=== PATIENT | male | born 2000 | race Caucasian/White ===

== ENCOUNTER 2018-10-21 19:11 | Inpatient (IN) | payer OTHER, MEDICAID ==
[2018-10-21] VITALS (11 sets, daily range): BP systolic 81–137; BP diastolic 36–78
[~2018-10-21] VITALS: Ht 177.8 cm; Wt 68.2 kg
[2018-10-21] MEDS ORDERED: Etomidate 40mg/20ml Inj IV ONE (19:30)
[2018-10-21] MEDS ORDERED: Glucagon 1mg Inj IV ONE (19:30)
[2018-10-21] MEDS ORDERED: Zemuron 50mg/5ml Inj IV ONE (19:30)
[2018-10-21] MEDS ORDERED: Activated Charcoal 50gm/240ml Btl ORAL ONE (19:30)
--- NOTE | 2018-10-21 19:30 | NUR ---
ER Nurse Note: Pt BIBA 24 c/o overdose; per EMS pt took propranolol, prazosin, olanzapine, atomoxetine, unknown amount. Pt a&ox0, unresponsive, BP 86/50. Pt on RA; intubated on arrival. Pt warm to touch, cap refill less than 3 secs, flaccid extemities. ERMD, RT, cartography/mapping technician, primary nurse and other nurses at pt side.
--- NOTE | 2018-10-21 19:38 | Emergency Room Report ---
History of Present Illness General Chief Complaint: Overdose Source: Patient, EMS Present Illness HPI 18-year-old male unknown past medical history presenting with overdose. He is from [place] reportedly, he voiced suicidal ideation to his girlfriend. And called 911. EMS arrived and patient was sunken in the couch. He had bottles for propranolol 40 mg 20 tablets, prazosin, olanzapine, atomoxetine. Unknown how many of each she took but the propranolol as well as olanzapine bottles were completely empty Patient is completely altered and lethargic cannot give any history EMS said that they gave Narcan without any effect Allergies: Coded Allergies: No Known Allergies (Unverified , 10/21/18) Patient History Past Medical History: see triage record Past Surgical History: none Pertinent Family History: none Reviewed Nursing Documentation: PMH: Agreed; PSxH: Agreed Nursing Documentation-PMH Past Medical History Deferred: Patient Unconscious Past Medical History: No Stated History Review of Systems All Other Systems: negative except mentioned in HPI Physical Exam Vital Signs Date Time Temp Pulse Resp B/P (MAP) Pulse Ox O2 Delivery O2 Flow Rate FiO2 10/21/18 19:12 88 12 108/76 98 Room Air Sp02 EP Interpretation: reviewed, normal General Appearance: lethargic, Stupor Head: normocephalic, atraumatic Eyes: bilateral eye normal inspection, bilateral eye PERRL, bilateral eye EOMI ENT: normal ENT inspection, normal pharynx, moist mucus membranes Neck: normal inspection, full range of motion, supple Respiratory: no retraction, respiratory distress, accessory muscle use Cardiovascular #1: normal inspection, regular rate, rhythm, no edema, normal capillary refill Cardiovascular #2: 2+ radial (R), 2+ radial (L) Gastrointestinal: other - no grimace to deep palpation, no guarding or rigidity Genitourinary: no CVA tenderness Musculoskeletal: other - no trauma Neurologic: other - gcs 3, unresponsive Psychiatric: other Skin: normal inspection, normal color, no rash, warm/dry, well hydrated, normal turgor Procedures Critical Care Time Critical Care Time Critical care time of 40 minutes, was performed in order to assess and manage the high probability of imminent or life threatening deterioration, with frequent reassessment and excludes all billable procedures. Intubation Intubation : Consent: Emergent Intubation Method: orotracheal Tube Size (cm): 8.0 Medications: Etomidate, Rocuronium Breath Sounds after Intubation: equal Intubation Complications: no complications Post Intubation Xray: Yes Attempts: One Patient Tolerated: Well Medical Decision Making Diagnostic Impression: Primary Impression: Drug overdose Additional Impression: Beta kathie toxicity ER Course 18-year-old male unknown pmhx p/w overdose DDX: OD likely 2/2 to his pills, olanzapine, prazosin, tamoxifen, and propranolol VS other tox such as alcohol / heroin / methamphetamines. R/O life threatening toxic overdose such as tylenol, ASA At this time, no history or signs of trauma to consider intracranial process Plan: IV access, labs, including alcohol, tylenol, asa, IVF ER course: Patient initially in heart rate of 80s, but hypotensive 86/50, bolus was given Patient immediately intubated upon arrival Activated charcoal given via NG tube Glucagon given I discussed with poison control -- they are aware of case and everything is already being done for patient Disposition: Patient admits ICU DW Dr Song Please note that this Emergency Department Report was dictated using [employer] touring guide technology software, occasionally this can lead to erroneous entry secondary to interpretation by the dictation equipment EKG Diagnostic Results EP Interpretation: Yes Rate: normal Rhythm: NSR ST Segments: No acute changes ASA given to patient: No Rhythm Strip EP Interpretation: Yes Rate: 70 Rhythm: NSR, no PVCs, no ectopy Chest X-ray CXR: Ordered: Yes 1 view Indication altered mental status EP interpretation: Yes Interpretation: ETT in appropriate position, NGT in postiion Impression: No acute disease Electronically signed by Karli Gamboa MD Laboratory Tests Test 10/21/18 19:24 10/21/18 19:25 Lactic Acid Level 1.50 mmol/L (0.4-2.0) White Blood Count 10.0 K/UL (4.8-10.8) Red Blood Count 5.04 M/UL (4.70-6.10) Hemoglobin 15.1 G/DL (14.2-18.0) Hematocrit 43.5 % (42.0-52.0) Mean Corpuscular Volume 86 FL (80-99) Mean Corpuscular Hemoglobin 30.1 PG (27.0-31.0) Mean Corpuscular Hemoglobin Concent 34.8 G/DL (32.0-36.0) Red Cell Distribution Width 11.1 % (11.6-14.8) L Platelet Count 303 K/UL (150-450) Mean Platelet Volume 5.6 FL (6.5-10.1) L Neutrophils (%) (Auto) 63.7 % (45.0-75.0) Lymphocytes (%) (Auto) 25.8 % (20.0-45.0) Monocytes (%) (Auto) 7.2 % (1.0-10.0) Eosinophils (%) (Auto) 2.7 % (0.0-3.0) Basophils (%) (Auto) 0.6 % (0.0-2.0) Sodium Level 145 MMOL/L (136-145) Potassium Level 3.4 MMOL/L (3.5-5.1) L Chloride Level 111 MMOL/L (98-107) H Carbon Dioxide Level 25 MMOL/L (21-32) Anion Gap 9 mmol/L (5-15) Blood Urea Nitrogen 14 mg/dL (7-18) Creatinine 0.8 MG/DL (0.55-1.30) Estimate Glomerular Filtration Rate > 60 mL/min (>60) Glucose Level 73 MG/DL (74-106) L Calcium Level 7.3 MG/DL (8.5-10.1) L Total Bilirubin 0.3 MG/DL (0.2-1.0) Aspartate Amino Transferase (AST) 14 U/L (15-37) L Alanine Aminotransferase (ALT) 30 U/L (12-78) Alkaline Phosphatase 65 U/L (46-116) Total Creatine Kinase 77 U/L (26-308) Troponin I 0.000 ng/mL (0.000-0.056) Total Protein 5.6 G/DL (6.4-8.2) L Albumin 3.3 G/DL (3.4-5.0) L Globulin 2.3 g/dL Albumin/Globulin Ratio 1.4 (1.0-2.7) Salicylates Level 1.0 ug/mL (2.8-20) L Acetaminophen Level 4 MCG/ML (10-30) L Serum Alcohol < 3 mg/dL CT/MRI/US Diagnostic Results CT/MRI/US Diagnostic Results : Imaging Test Ordered: CT HEAD Impression CT HEAD Without Contrast: Motion degraded study. Negative for mass, mass-effect or intracranial hemorrhage. Last Vital Signs Date Time Temp Pulse Resp B/P (MAP) Pulse Ox O2 Delivery O2 Flow Rate FiO2 10/21/18 19:12 88 12 108/76 98 Room Air Disposition: ADMITTED INPATIENT Condition: Critical Karli Gamboa M.D. Oct 21, 2018 19:38
[2018-10-21 19:44] LABS: BASOPHILS % (AUTO) 0.6 % (0.0-2.0); EOSINOPHILS % (AUTO) 2.7 % (0.0-3.0); HEMATOCRIT 43.5 % (42.0-52.0); HEMOGLOBIN 15.1 G/DL (14.2-18.0); LYMPHOCYTES % (AUTO) 25.8 % (20.0-45.0); MEAN CORPUSCULAR VOLUME 86 FL (80-99); MONOCYTES % (AUTO) 7.2 % (1.0-10.0); NEUTROPHILS % (AUTO) 63.7 % (45.0-75.0); PLATELET COUNT 303 K/UL (150-450); RED BLOOD COUNT 5.04 M/UL (4.70-6.10); RED CELL DISTRIBUTION WIDTH 11.1 % (11.6-14.8)
--- NOTE | 2018-10-21 20:30 | NUR ---
ER Nurse Note: 1914: Pt arrived to unit with VS of 86/52, 92hr, 19rr, 98% RA. 1L NS given to increase BP before initating intubation. 1919: After bolus, BP 105/77, 88HR, 10RR, 100%RA. Orders for Etomidate 30mg and Rucaronium 80 mg given and administered. 1922: Pt intubated with size 8.0mg, anchored at 19 cm at lip. 1924: x-ray confirmation on ET tube and NG tube; cleared by ERMD for use. 1929: activated charcoal given via NG tube 2015: ET tube readjusted to 26 cm, x-ray taken and cleared for use. 2030: All orders completed per ERMD orders except urine. Received verbal order for condom cath, no urine; will endorse to oncoming nurse. Pt a&ox0, VSS. All orders given; pt on fentyl drip started at 10mcg/min. Will continue to monitor.
[2018-10-21 20:31] LABS: ANION GAP 9 mmol/L (5-15); BLOOD UREA NITROGEN 14 mg/dL (7-18); CALCIUM 7.3 MG/DL (8.5-10.1); CARBON DIOXIDE 25 MMOL/L (21-32); CHLORIDE 111 MMOL/L (98-107); CREATININE 0.8 MG/DL (0.55-1.30); POTASSIUM 3.4 MMOL/L (3.5-5.1); SODIUM 145 MMOL/L (136-145)
[2018-10-21 20:35] LABS: ALANINE AMINOTRANSFERASE 30 U/L (12-78); ALBUMIN 3.3 G/DL (3.4-5.0); ALBUMIN/GLOBULIN RATIO 1.4 (1.0-2.7); ALKALINE PHOSPHATASE 65 U/L (46-116); ASPARTATE AMINO TRANSFERASE 14 U/L (15-37); BILIRUBIN,TOTAL 0.3 MG/DL (0.2-1.0); CREATINE KINASE 77 U/L (26-308)
[2018-10-21] MEDS ORDERED: INDERAL20 MG PO (20:43)
[2018-10-21] MEDS ORDERED: PRAZOSIN HCL2 MG PO (20:43)
[2018-10-21] MEDS ORDERED: STRATTERA60 MG ORAL (20:43)
[2018-10-21] MEDS ORDERED: OLANZAPINE15 MG ORAL (20:43)
[2018-10-21] MEDS ORDERED: LORazepam Inj 2mg/ml 1ml IV PRN (21:15)
[2018-10-21] MEDS ORDERED: Nitroglycerin Subl 0.4mg tab SL PRN (21:15)
[2018-10-21] MEDS ORDERED: Albuterol/Ipratropium 3ml neb HHN PRN (21:15)
[2018-10-21] MEDS ORDERED: Morphine Sulfate 4mg/ml Inj (IV USE ONLY) IVP PRN (21:15)
--- NOTE | 2018-10-21 21:15 | NUR ---
ER Nurse Note: Report given to Sabina charge nurse in ICU to endorse to HAIDER Suarez primary nurse. Pt left with all belongings.
--- NOTE | 2018-10-21 22:00 | NUR ---
NURSE NOTES: Received report from Monet MALONEY. Patient received from ER via gurney admitted from home for overdose under the care of Dr. Song, Dr Daniels placed an order. Patient in bed lethargic with episode of pulling tubing MD aware with bilateral soft wrist restraint order. Patient on Fentanyl 2mls/hr RASS score -2. Condom intact no urine output. Body assessment done. Bed in low position. bed alarm on and in low position. Will continue to monitor plan of care. Charge nurse left message to patient girlfriend to ask information regarding the patient history and medication list.
[2018-10-21] MEDS: D5 1/2NS 1,000 ML IV SCH (22:16)
[2018-10-21 23:22] LABS: BILIRUBIN, URINE 1+ (NEGATIVE); COLOR,URINE PALE YELLOW; GLUCOSE, URINE (UA) 3+ (NEGATIVE); KETONES,URINE 1+ (NEGATIVE); LEUKOCYTE ESTERASE ,URINE 1+ (NEGATIVE); NITRITE,URINE NEGATIVE (NEGATIVE); PH,URINE 6 (4.5-8.0); PROTEIN,URINE 1+ (NEGATIVE); UROBILINOGEN,URINE NORMAL MG/DL (0.0-1.0)
[2018-10-21 23:23] LABS: APPEARANCE,URINE SLIGHTLY CLOUDY
--- NOTE | 2018-10-21 23:45 | NUR ---
NURSE NOTES: Levi Pharmacist from [facility] poison control called regarding the patient blood test, drug screen, vital sign and patient conditions. charge nurse aware.
[2018-10-22] VITALS (18 sets, daily range): BP systolic 11–153; BP diastolic 46–92
--- NOTE | 2018-10-22 | NUR ---
NURSE NOTES: Held Fentanyl drip patient not agitated and bp slightly low 81/36 and 104/59. Charge nurse aware. will continue to monitor patient.
--- NOTE | 2018-10-22 02:00 | NUR ---
NURSE NOTES: Patient in bed resting no moaning no facial grimaces. Fentanyl drip still hold. Honeycutt draining. No s/s of acute distress noted. Will continue plan of care.
--- NOTE | 2018-10-22 04:00 | NUR ---
NURSE NOTES: Patient Temp 99.5 axillary cooling measure provided. Fentanyl drip still hold BP 114/59, HR 92. No s/s of acute distress noted. No seizure. will continue plan of care.
[2018-10-22 04:25] LABS: BASOPHILS % (AUTO) 0.3 % (0.0-2.0); EOSINOPHILS % (AUTO) 1.9 % (0.0-3.0); HEMATOCRIT 40.2 % (42.0-52.0); LYMPHOCYTES % (AUTO) 13.8 % (20.0-45.0); MEAN CORPUSCULAR VOLUME 87 FL (80-99); MONOCYTES % (AUTO) 7.1 % (1.0-10.0); PLATELET COUNT 242 K/UL (150-450); RED BLOOD COUNT 4.61 M/UL (4.70-6.10); RED CELL DISTRIBUTION WIDTH 11.3 % (11.6-14.8)
[2018-10-22 04:34] LABS: INR 1.1 (0.9-1.1)
[2018-10-22 04:46] LABS: ALANINE AMINOTRANSFERASE 30 U/L (12-78); ALBUMIN 3.4 G/DL (3.4-5.0); ALKALINE PHOSPHATASE 56 U/L (46-116); ASPARTATE AMINO TRANSFERASE 17 U/L (15-37); BILIRUBIN,DIRECT < 0.1 MG/DL (0.0-0.3); BILIRUBIN,TOTAL 0.5 MG/DL (0.2-1.0); LACTATE DEHYDROGENASE 162 U/L (81-234); PHOSPHORUS 2.2 MG/DL (2.5-4.9)
--- NOTE | 2018-10-22 05:17 | NUR ---
NURSE NOTES: Blood glucose 96mg/dl.
--- NOTE | 2018-10-22 06:35 | NUR ---
RESPIRATORY NOTE: Received patient on ordered vent settings. Patient endotracheal tube is patent and secured. No resp distress noted. Suctioned patient PRN. Vent alarms are on and audible. Vent is plugged into red outlet. Will monitor patient progress.
--- NOTE | 2018-10-22 07:10 | NUR ---
HAND-OFF: Report given to HAIDER Huston.Endorsed to follow with girlfriend regarding the patient history and medication.
--- NOTE | 2018-10-22 07:20 | NUR ---
NURSE NOTES: Received report from Jayden Alex RN. Patient asleep in bed, responsive to tactile stimuli. ETT 8.0, 26 cm at lip line, hooked to vent with settings of AC 16, TV 600, FiO2 30%, no PEEP, saturating at 100%. No s/s of respiratory distress floating. Left NGT in place and draining black secretions. Honeycutt catheter patent and draining well. Left AC 18g infusing D51/2NS @ 75 cc/hr, asymptomatic. Bilateral soft wrist restraints in place. Skin intact, no redness or edema noted. Peripheral pulses present. Bed locked in lowest position with side rails up x 3. Bed alarm on. All needs attended to. Call light within reach. Will continue to monitor.
--- NOTE | 2018-10-22 08:01 | NUR ---
NURSE NOTES: Patient noted to be restless and attempting to get out of bed, agitated when touched. PRN ativan 2mg IVP given.
--- NOTE | 2018-10-22 08:43 | NUR ---
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 BETA JOYCE TOXICITY VS: BP 88/70, P 90, T 98.1, RR 14, SpO2 100 WBC 15.0, RBC 4.61, Hgb 14.0, Hct 40.2, K 3.4 IS:GLUCAGON 3mg IV CHARCOAL 50gm NS x1L IV ZEMURON 80mg IV AMIDATE 30mg IV FENTANYL CITRATE 100ml IV ADMITTED TO ICU DC PLAN TO BE DETERMINED Addendum: 10/22/18 at 0858 by Clarice Skinner LVN DC PLAN TO DETERMINED ON CARE NEEDED Addendum: 10/22/18 at 0931 by Clarice Skinner LVN VENT SETTINGS: AC 16, TV 600, FiO2 60
[2018-10-22] MEDS ORDERED: Heparin 5000 units/ml inj SUBQ SCH (09:00)
[2018-10-22] MEDS: Haloperidol 5mg/ml Inj IVPB PRN ×2 (09:52→09:57)
--- NOTE | 2018-10-22 09:53 | Consultation ---
History of Present Illness General Date patient seen: Oct 22, 2018 Chief Complaint: Overdose Present Illness HPI 18-year-old male unknown past medical history presented to ER by EMS with overdose of multiple medications. He had bottles for propranolol 40 mg 20 tablets, prazosin, olanzapine, atomoxetine. He voiced suicidal ideation to his girlfriend. And called 911. EMS arrived and patient was sunken in the couch. Unknown how many of each she took but the propranolol as well as olanzapine bottles were completely empty. Patient is completely altered and lethargic cannot give any history. EMS said that they gave Narcan without any effect. He was in respiratory failure in ER and was intubated. He received Charcoal and transferred to ICU. Allergies: Coded Allergies: No Known Allergies (Unverified , 10/21/18) Medication History Scheduled Atomoxetine (Strattera), 25 MG ORAL DAILY, (Reported) Olanzapine (Olanzapine), 30 MG ORAL DAILY, (Reported) Prazosin Hcl (Prazosin Hcl), 4 MG PO BEDTIME, (Reported) Propranolol HCl (Propranolol HCl), 40 MG PO BID, (Reported) Patient History Healthcare decision maker N Resuscitation status Full Code Advanced Directive on File No Past Medical/Surgical History Past Medical/Surgical History: (1) unknown past medical history Review of Systems All Other Systems: negative except mentioned in HPI Physical Exam General Appearance: WD/WN Lines, tubes and drains: peripheral HEENT: normocephalic Neck: non-tender, normal alignment Respiratory/Chest: chest wall non-tender, lungs clear Breasts: no masses Cardiovascular/Chest: normal rate Genitourinary/Rectal: normal genital exam Extremities: non-tender Last 24 Hour Vital Signs Date Time Temp Pulse Resp B/P (MAP) Pulse Ox O2 Delivery O2 Flow Rate FiO2 10/22/18 08:00 30 10/22/18 08:00 Endotracheal Tube 10/22/18 08:00 98.1 102 18 112/76 (88) 100 10/22/18 07:40 100 10/22/18 07:00 91 16 140/81 (100) 100 10/22/18 06:00 91 17 127/79 (95) 100 10/22/18 05:23 90 16 30 100 10/22/18 05:00 92 16 127/76 (93) 100 10/22/18 04:30 92 16 114/59 (77) 100 10/22/18 04:00 99.5 91 16 108/58 (75) 100 10/22/18 04:00 Endotracheal Tube 10/22/18 04:00 60 10/22/18 04:00 91 10/22/18 03:07 92 16 35 100 10/22/18 03:00 91 16 118/56 (76) 100 10/22/18 02:00 90 16 113/59 (77) 100 10/22/18 01:30 90 16 105/52 (69) 100 10/22/18 01:00 91 16 40 100 10/22/18 01:00 90 16 117/63 (81) 100 10/22/18 00:30 87 16 109/60 (76) 100 10/22/18 00:09 88 16 104/59 (74) 100 10/22/18 00:00 60 10/22/18 00:00 Endotracheal Tube 10/22/18 00:00 98.4 88 16 87/46 (60) 100 10/21/18 23:45 88 16 81/36 (51) 100 10/21/18 23:30 88 16 101/54 (70) 100 10/21/18 23:15 88 16 115/66 (82) 100 10/21/18 23:06 89 10/21/18 23:00 89 16 109/64 (79) 100 10/21/18 23:00 16 Endotracheal Tube 60 10/21/18 22:45 86 16 106/62 (77) 100 10/21/18 22:34 16 Endotracheal Tube 60 10/21/18 22:30 86 16 95/50 (65) 100 10/21/18 22:28 86 16 60 100 10/21/18 22:23 81 16 100 10/21/18 22:14 16 Endotracheal Tube 60 10/21/18 22:02 60 10/21/18 22:01 93 10/21/18 22:01 Endotracheal Tube 10/21/18 22:00 98.1 93 14 101/70 (80) 100 10/21/18 21:59 17 Endotracheal Tube 60 10/21/18 21:39 18 Endotracheal Tube 60 10/21/18 21:37 98.2 84 16 136/76 98 Endotracheal Tube 60.0 60 10/21/18 21:37 98.2 84 16 136/76 98 Endotracheal Tube 60.0 60 10/21/18 21:14 16 Endotracheal Tube 60 10/21/18 20:59 18 Endotracheal Tube 60 10/21/18 20:39 17 Endotracheal Tube 60 10/21/18 20:30 88 17 102/66 100 Endotracheal Tube 60.0 60 10/21/18 20:29 18 Endotracheal Tube 60.0 60 10/21/18 20:14 16 Mechanical Ventilator 100.0 60 10/21/18 19:30 98.1 90 14 88/70 100 Endotracheal Tube 60.0 60 10/21/18 19:30 80 14 Mechanical Ventilator 100 10/21/18 19:21 80 14 Mechanical Ventilator 100 10/21/18 19:20 80 14 100 10/21/18 19:12 88 12 108/76 98 Room Air Intake and Output 10/21/18 10/22/18 18:59 06:59 Intake Total 2582 ml Output Total 655 ml Balance 1927 ml Intake IV Total 2582 ml Output Urine Total 655 ml Laboratory Tests Test 10/21/18 19:24 10/21/18 19:25 10/21/18 22:00 10/21/18 23:00 Lactic Acid Level 1.50 mmol/L (0.4-2.0) White Blood Count 10.0 K/UL (4.8-10.8) Red Blood Count 5.04 M/UL (4.70-6.10) Hemoglobin 15.1 G/DL (14.2-18.0) Hematocrit 43.5 % (42.0-52.0) Mean Corpuscular Volume 86 FL (80-99) Mean Corpuscular Hemoglobin 30.1 PG (27.0-31.0) Mean Corpuscular Hemoglobin Concent 34.8 G/DL (32.0-36.0) Red Cell Distribution Width 11.1 % (11.6-14.8) L Platelet Count 303 K/UL (150-450) Mean Platelet Volume 5.6 FL (6.5-10.1) L Neutrophils (%) (Auto) 63.7 % (45.0-75.0) Lymphocytes (%) (Auto) 25.8 % (20.0-45.0) Monocytes (%) (Auto) 7.2 % (1.0-10.0) Eosinophils (%) (Auto) 2.7 % (0.0-3.0) Basophils (%) (Auto) 0.6 % (0.0-2.0) Sodium Level 145 MMOL/L (136-145) Potassium Level 3.4 MMOL/L (3.5-5.1) L Chloride Level 111 MMOL/L (98-107) H Carbon Dioxide Level 25 MMOL/L (21-32) Anion Gap 9 mmol/L (5-15) Blood Urea Nitrogen 14 mg/dL (7-18) Creatinine 0.8 MG/DL (0.55-1.30) Estimat Glomerular Filtration Rate > 60 mL/min (>60) Glucose Level 73 MG/DL (74-106) L Calcium Level 7.3 MG/DL (8.5-10.1) L Total Bilirubin 0.3 MG/DL (0.2-1.0) Aspartate Amino Transf (AST/SGOT) 14 U/L (15-37) L Alanine Aminotransferase (ALT/SGPT) 30 U/L (12-78) Alkaline Phosphatase 65 U/L (46-116) Total Creatine Kinase 77 U/L (26-308) Troponin I 0.000 ng/mL (0.000-0.056) Total Protein 5.6 G/DL (6.4-8.2) L Albumin 3.3 G/DL (3.4-5.0) L Globulin 2.3 g/dL Albumin/Globulin Ratio 1.4 (1.0-2.7) Salicylates Level 1.0 ug/mL (2.8-20) L Acetaminophen Level 4 MCG/ML (10-30) L Serum Alcohol < 3 mg/dL Urine Color Pale yellow Urine Appearance Slightly cloudy Urine pH 6 (4.5-8.0) Urine Specific Irene 1.015 (1.005-1.035) Urine Protein 1+ (NEGATIVE) H Urine Glucose (UA) 3+ (NEGATIVE) H Urine Ketones 1+ (NEGATIVE) H Urine Blood Negative (NEGATIVE) Urine Nitrite Negative (NEGATIVE) Urine Bilirubin 1+ (NEGATIVE) H Urine Ictotest Negative (NEGATIVE) Urine Urobilinogen Normal MG/DL (0.0-1.0) Urine Leukocyte Esterase 1+ (NEGATIVE) H Urine RBC 0-2 /HPF (0 - 0) H Urine WBC 0-2 /HPF (0 - 0) Urine Squamous Epithelial Cells Occasional /LPF Urine Bacteria Occasional /HPF (NONE) Urine Opiates Screen Negative (NEGATIVE) Urine Barbiturates Screen Negative (NEGATIVE) Phencyclidine (PCP) Screen Negative (NEGATIVE) Urine Amphetamines Screen Negative (NEGATIVE) Urine Benzodiazepines Screen Negative (NEGATIVE) Urine Cocaine Screen Negative (NEGATIVE) Urine Marijuana (THC) Screen Positive (NEGATIVE) H Arterial Blood pH 7.418 (7.350-7.450) Arterial Blood Partial Pressure CO2 34.6 mmHg (35.0-45.0) L Arterial Blood Partial Pressure O2 306.8 mmHg (75.0-100.0) H Arterial Blood HCO3 21.8 mmol/L (22.0-26.0) L Arterial Blood Oxygen Saturation 99.2 % (95-100) Arterial Blood Base Excess -1.9 (-2-2) Kartik Test Positive Test 10/22/18 03:10 10/22/18 07:40 White Blood Count 15.0 K/UL (4.8-10.8) H Red Blood Count 4.61 M/UL (4.70-6.10) L Hemoglobin 14.0 G/DL (14.2-18.0) L Hematocrit 40.2 % (42.0-52.0) L Mean Corpuscular Volume 87 FL (80-99) Mean Corpuscular Hemoglobin 30.5 PG (27.0-31.0) Mean Corpuscular Hemoglobin Concent 34.9 G/DL (32.0-36.0) Red Cell Distribution Width 11.3 % (11.6-14.8) L Platelet Count 242 K/UL (150-450) Mean Platelet Volume 6.3 FL (6.5-10.1) L Neutrophils (%) (Auto) 77.0 % (45.0-75.0) H Lymphocytes (%) (Auto) 13.8 % (20.0-45.0) L Monocytes (%) (Auto) 7.1 % (1.0-10.0) Eosinophils (%) (Auto) 1.9 % (0.0-3.0) Basophils (%) (Auto) 0.3 % (0.0-2.0) Prothrombin Time 11.6 SEC (9.30-11.50) H Prothromb Time International Ratio 1.1 (0.9-1.1) Activated Partial Thromboplast Time 26 SEC (23-33) Phosphorus Level 2.2 MG/DL (2.5-4.9) L Total Bilirubin 0.5 MG/DL (0.2-1.0) Direct Bilirubin < 0.1 MG/DL (0.0-0.3) Aspartate Amino Transf (AST/SGOT) 17 U/L (15-37) Alanine Aminotransferase (ALT/SGPT) 30 U/L (12-78) Alkaline Phosphatase 56 U/L (46-116) Lactate Dehydrogenase 162 U/L (81-234) Total Protein 6.1 G/DL (6.4-8.2) L Albumin 3.4 G/DL (3.4-5.0) Arterial Blood pH 7.476 (7.350-7.450) Arterial Blood Partial Pressure CO2 27.3 mmHg (35.0-45.0) L Arterial Blood Partial Pressure O2 57.0 mmHg (75.0-100.0) L Arterial Blood HCO3 19.7 mmol/L (22.0-26.0) L Arterial Blood Oxygen Saturation 96.0 % (95-100) Arterial Blood Base Excess -2.3 (-2-2) L Kartik Test Positive Microbiology Date/Time Source Procedure Growth Status 10/21/18 21:20 Rectum Received Height (Feet): 5 Height (Inches): 10.00 Weight (Pounds): 151 Medications Current Medications Medications (Trade) Dose Ordered Sig/Karl Route PRN Reason Start Time Stop Time Status Last Admin Dose Admin Acetaminophen (Tylenol) 650 mg Q4H PRN ORAL Fever 10/21/18 21:15 11/20/18 21:14 Albuterol/ Ipratropium (Albuterol/ Ipratropium) 3 ml Q4H PRN HHN Shortness of Breath 10/21/18 21:15 10/26/18 21:14 Dextrose (Dextrose 50%) 25 ml Q30M PRN IV Hypoglycemia 10/21/18 21:15 11/20/18 21:14 Dextrose (Dextrose 50%) 50 ml Q30M PRN IV Hypoglycemia 10/21/18 21:15 11/20/18 21:14 Dextrose/Sodium Chloride 1,000 ml @ 75 mls/hr [id number] IV 10/21/18 21:30 11/20/18 21:29 10/21/18 22:16 Fentanyl Citrate 1000 mcg/Sodium Chloride 100 ml @ 0 mls/hr Q24H IV 10/21/18 22:15 10/28/18 22:14 10/21/18 22:34 Heparin Sodium (Porcine) (Heparin 5000 units/ml) 5,000 units EVERY 12 HOURS SUBQ 10/22/18 09:00 11/21/18 08:59 10/22/18 08:58 Lorazepam (Ativan 2mg/ml 1ml) 2 mg Q2H PRN IV agitation 10/21/18 21:15 10/28/18 21:14 10/22/18 08:01 Morphine Sulfate (Morphine Sulfate) 4 mg Q4H PRN IVP Severe Pain (Pain Scale 7-10) 10/21/18 21:15 10/28/18 21:14 Nitroglycerin (Ntg) 0.4 mg Q5M PRN SL Prn Chest Pain 10/21/18 21:15 11/20/18 21:14 Ondansetron HCl (Zofran) 4 mg Q6H PRN IVP Nausea & Vomiting 10/21/18 21:15 11/20/18 21:14 Assessment/Plan Problem List: (1) Acute respiratory failure ICD Codes: J96.00 - Acute respiratory failure, unspecified whether with hypoxia or hypercapnia SNOMED: 84984513 (2) Acute metabolic encephalopathy ICD Codes: G93.41 - Metabolic encephalopathy SNOMED: 85055425, 886752925 (3) Drug overdose ICD Codes: T50.901A - Poisoning by unspecified drugs, medicaments and biological substances, accidental (unintentional), initial encounter SNOMED: 57886569 (4) Suicidal ideation ICD Codes: R45.851 - Suicidal ideations SNOMED: 3381685 Respiratory: monitor respiratory rate, CXR, weaning trial Cardiac: continue to monitor HR/BP Renal: F/U I&O, keep IV fluid, check electrolytes Infectious Disease: check cultures Gastrointestinal: start feedings Endocrine: monitor blood sugar Hematologic: transfuse if hgb<8.5 Neurologic: PRN Ativan, PRN Morphine, keep patient comfortable Disposition: keep in ICU Notes Reviewed: tire changer aircraft, cardio, renal Discussed with: nurses, consultants, catalytic case operator Tuan Daniels MD Oct 22, 2018 09:53
--- NOTE | 2018-10-22 09:55 | NUR ---
NURSE NOTES: Patient noted to be agitated. DR. Daniels at bedside and ordered haldol PRN prior to extubation. PRN haldol 5mg IVP given. Patient still noted to be agitated, non-compliant and attempting to get out of bed. Per Dr. Daniels, give an extra dose of haldol now.
--- NOTE | 2018-10-22 10:10 | NUR ---
RESPIRATORY NOTE: Patient extubated at this time per MD order. Patient jerry extubation well. No stridor, no resp distress noted. Will monitor patient progress.
[2018-10-22] MEDS: D5 1/2NS 1,000 ML IV SCH ×2 (11:01→11:45)
--- NOTE | 2018-10-22 11:03 | NUR ---
Social Service Note SW unable to interview patient. Patient is awake, however would not provide direct eye contact with SW and would softly mumble when asked questions. Girlfriend not at bedside. Message left for Shannan [phone]. It appears patient is from [place]. Patient's insurance appears to be Medicaid. Attempting to verify insurance for inpatient psychiatric services. Awaiting return call from girlfriend. Will monitor and reassess.
--- NOTE | 2018-10-22 11:10 | NUR ---
NURSE NOTES: Patient s/p extubation 1 hour ago. No s/s of respiratory distress noted. Patient is receiving O2 via nasal cannula @ 2L/min, saturating at 100%. Will continue to monitor.
--- NOTE | 2018-10-22 11:39 | NUR ---
TRANSFER TO FLOOR: Patient transferred to Med-Surg room 208-2, per Dr. Daniels. Report given to Justice Mcdonald RN. Belongings given to receiving nurse and checked at bedside. S/O informed of transfer. Sitter at bedside during time of transfer.
[2018-10-22] MEDS ORDERED: Haloperidol 5mg/ml Inj IVPB PRN (11:45)
[2018-10-22] MEDS ORDERED: Nitroglycerin Subl 0.4mg tab SL PRN (11:45)
--- NOTE | 2018-10-22 11:45 | NUR ---
NURSE NOTES: RECEIVED PATIENT IN BED ACCOMPANIED BY SITTER. IV INTACT. NO SIGNS OF RESPIRATORY DISTRESS, PATIENT ON NC 2L. PATIENT DENIES PAIN. BILATERAL WRIST RESTRAINTS ON. SKIN ASSESSED AND SKIN INTACT. BED IN LOWEST POSITION, CALL LIGHT WITHIN REACH. WILL CONTINUE TO MONITOR.
[2018-10-22] MEDS ORDERED: Albuterol/Ipratropium 3ml neb HHN PRN (12:30)
[2018-10-22] MEDS ORDERED: LORazepam Inj 2mg/ml 1ml IV PRN (12:30)
[2018-10-22] MEDS ORDERED: Haloperidol Lactate 5 MG in D5W 55 ML IVPB PRN (12:45)
[2018-10-22] MEDS ORDERED: Morphine Sulfate 4mg/ml Inj (IV USE ONLY) IVP PRN (13:15)
--- NOTE | 2018-10-22 13:51 | NUR ---
Social Service Note SW contacted the [facility] providing psychiatric units and each unit had the response that they are unable to accept a patient with out of state Medicade. Psychiatric services are a carved out benefit through health plans. Psychiatric transfer is not an option. [facility] [phone] declined based on insurance [employer] [place] [phone] declined based on insurance So. [place] [phone] declined based on insurance [facility] [phone] declined based on insurance [place] [phone] declined based on insurance [place] [phone] declined based on insurance [facility] [phone] declined based on insurance [facility] [phone] declined based on insurance [facility] [phone] declined based on insurance [facility] [phone] declined based on insurance [facility] [phone] declined based on insurance [facility] informed Dr. Daniels. Mental Health Resources placed in patient's chart. Second call placed to patient's girlfriend.
--- NOTE | 2018-10-22 15:53 | Diagnostic Imaging Report ---
Indication: Altered mental status Technique: Continuous helical CT scanning of the head was performed without intravenous contrast material. Axial and coronal 5 mm sections were generated. Radiation dose was minimized using automated exposure control Dose: Total Dose Length Product - DLP 2734.[address] Dose Index - CTDIvol(s) 70.38,70.38 mGy. Comparison: none Findings: There is slight image degradation due to motion artifact The ventricular system is normal in size and configuration. There is no shift of midline structures. No abnormal extra-axial fluid collections are noted. There is no evidence of intracerebral bleeding. No other abnormal high or low density areas are noted within the brain. . There is minimal right ethmoid sinus disease. The mastoids are clear. Impression: Normal CT scan of the head without contrast material. Renal sinus disease This agrees with the preliminary interpretation provided overnight by [facility] telerad[facility] service. The CT scanner at [facility] is accredited by the [employer] and the scans are performed using protocols designed to limit radiation exposure to as low as reasonably achievable to attain images of sufficient resolution adequate for diagnostic evaluation.
--- NOTE | 2018-10-22 15:57 | History & Physical ---
History and Physical History & Physicial Emiliano Song MD Oct 22, 2018 15:57
--- NOTE | 2018-10-22 16:01 | NUR ---
*-* NO INSURANCE IN THE BAR TO SEND CLINICALS OR REVIEWS*-*
[2018-10-22] MEDS ORDERED: D5 1/2NS 1000ml IV ONE (16:36)
--- NOTE | 2018-10-22 16:39 | Diagnostic Imaging Report ---
Indication: Post intubation Technique: One view of the chest Comparison: none Findings: There is an endotracheal tube, tip projecting above the thoracic inlet. There is a nasogastric tube, tip projecting beyond the edge of image, probably well within the stomach. The lungs and pleural spaces are clear. The heart size is normal Impression: High position of endotracheal tube. Subsequent chest radiograph indicates that this was corrected Satisfactory nasogastric intubation Clear lungs
--- NOTE | 2018-10-22 18:06 | Diagnostic Imaging Report ---
Indication: Post adjustment of endotracheal tube Technique: One view of the chest Comparison: none Findings: Interval advancement of previously demonstrated high endotracheal tube, tip now projecting in good position approximately 6 cm above the sandro. Stable satisfactory position of nasogastric tube. The lungs remain clear Impression: Improved and now satisfactory position of endotracheal tube
--- NOTE | 2018-10-22 19:26 | NUR ---
HAND-OFF: Report given to HAIDER ASHFORD.
--- NOTE | 2018-10-22 19:30 | NUR ---
NURSE NOTES: Received patient in no apparent distress. A&OX1. NC 2L on. Sitter at bedside. Restraint noted on bilateral wrist, radial pulse present, skin intact. IV site patent and intact. Bed in lowest position. Call light within reach. Will continue to monitor.
--- NOTE | 2018-10-22 22:05 | Consultation ---
History of Present Illness General Chief Complaint: Overdose Present Illness HPI 18 yo male with unknown past psych hx. who was admitted after a SA s/p od on multiple pills. the pt was lethargic, confused and agitated. Allergies: Coded Allergies: No Known Allergies (Unverified , 10/21/18) Medication History Scheduled Atomoxetine (Strattera), 25 MG ORAL DAILY, (Reported) Olanzapine (Olanzapine), 30 MG ORAL DAILY, (Reported) Prazosin Hcl (Prazosin Hcl), 4 MG PO BEDTIME, (Reported) Propranolol HCl (Propranolol HCl), 40 MG PO BID, (Reported) Patient History Limited by: medical condition History Provided By: Medical Record, PMD Healthcare decision maker N Resuscitation status Full Code Advanced Directive on File No Past Medical/Surgical History Past Medical/Surgical History: (1) Beta kathie toxicity (2) unknown past medical history (3) unknown history (4) Acute respiratory failure (5) Suicidal ideation (6) Acute metabolic encephalopathy (7) Drug overdose Review of Systems Psychiatric: Reports: prior hx, anxiety, depressed feelings, emotional problems , hallucinations Physical Exam General Appearance: lethargic, confused, agitated Last 24 Hour Vital Signs Date Time Temp Pulse Resp B/P (MAP) Pulse Ox O2 Delivery O2 Flow Rate FiO2 10/22/18 16:00 98.1 101 20 111/65 (80) 98 10/22/18 11:00 98 18 136/92 (107) 100 10/22/18 10:10 Nasal Cannula 2.0 28 10/22/18 10:00 101 16 147/81 (103) 100 10/22/18 09:00 98 17 128/85 (99) 100 10/22/18 08:34 89 16 30 100 10/22/18 08:00 30 10/22/18 08:00 Endotracheal Tube 10/22/18 08:00 98.1 102 18 112/76 (88) 100 10/22/18 07:40 100 10/22/18 07:00 91 16 140/81 (100) 100 10/22/18 06:35 91 16 30 100 10/22/18 06:00 91 17 127/79 (95) 100 10/22/18 05:23 90 16 30 100 10/22/18 05:00 92 16 127/76 (93) 100 10/22/18 04:30 92 16 114/59 (77) 100 10/22/18 04:00 99.5 91 16 108/58 (75) 100 10/22/18 04:00 Endotracheal Tube 10/22/18 04:00 60 10/22/18 04:00 91 10/22/18 03:07 92 16 35 100 10/22/18 03:00 91 16 118/56 (76) 100 10/22/18 02:00 90 16 113/59 (77) 100 10/22/18 01:30 90 16 105/52 (69) 100 10/22/18 01:00 91 16 40 100 10/22/18 01:00 90 16 117/63 (81) 100 10/22/18 00:30 87 16 109/60 (76) 100 10/22/18 00:09 88 16 104/59 (74) 100 10/22/18 00:00 60 10/22/18 00:00 Endotracheal Tube 10/22/18 00:00 98.4 88 16 87/46 (60) 100 10/21/18 23:45 88 16 81/36 (51) 100 10/21/18 23:30 88 16 101/54 (70) 100 10/21/18 23:15 88 16 115/66 (82) 100 10/21/18 23:06 89 10/21/18 23:00 89 16 109/64 (79) 100 10/21/18 23:00 16 Endotracheal Tube 60 10/21/18 22:45 86 16 106/62 (77) 100 10/21/18 22:34 16 Endotracheal Tube 60 10/21/18 22:30 86 16 95/50 (65) 100 10/21/18 22:28 86 16 60 100 10/21/18 22:23 81 16 100 10/21/18 22:14 16 Endotracheal Tube 60 Intake and Output 10/21/18 10/22/18 19:00 07:00 Intake Total 2657 ml Output Total 700 ml Balance 1957 ml IV Total 2657 ml Output Urine Total 700 ml Laboratory Tests Test 10/21/18 23:00 10/22/18 03:10 10/22/18 07:40 Arterial Blood pH 7.418 (7.350-7.450) 7.476 (7.350-7.450) Arterial Blood Partial Pressure CO2 34.6 mmHg (35.0-45.0) L 27.3 mmHg (35.0-45.0) L Arterial Blood Partial Pressure O2 306.8 mmHg (75.0-100.0) H 57.0 mmHg (75.0-100.0) L Arterial Blood HCO3 21.8 mmol/L (22.0-26.0) L 19.7 mmol/L (22.0-26.0) L Arterial Blood Oxygen Saturation 99.2 % (95-100) 96.0 % (95-100) Arterial Blood Base Excess -1.9 (-2-2) -2.3 (-2-2) L Kartik Test Positive Positive White Blood Count 15.0 K/UL (4.8-10.8) H Red Blood Count 4.61 M/UL (4.70-6.10) L Hemoglobin 14.0 G/DL (14.2-18.0) L Hematocrit 40.2 % (42.0-52.0) L Mean Corpuscular Volume 87 FL (80-99) Mean Corpuscular Hemoglobin 30.5 PG (27.0-31.0) Mean Corpuscular Hemoglobin Concent 34.9 G/DL (32.0-36.0) Red Cell Distribution Width 11.3 % (11.6-14.8) L Platelet Count 242 K/UL (150-450) Mean Platelet Volume 6.3 FL (6.5-10.1) L Neutrophils (%) (Auto) 77.0 % (45.0-75.0) H Lymphocytes (%) (Auto) 13.8 % (20.0-45.0) L Monocytes (%) (Auto) 7.1 % (1.0-10.0) Eosinophils (%) (Auto) 1.9 % (0.0-3.0) Basophils (%) (Auto) 0.3 % (0.0-2.0) Prothrombin Time 11.6 SEC (9.30-11.50) H Prothromb Time International Ratio 1.1 (0.9-1.1) Activated Partial Thromboplast Time 26 SEC (23-33) Phosphorus Level 2.2 MG/DL (2.5-4.9) L Total Bilirubin 0.5 MG/DL (0.2-1.0) Direct Bilirubin < 0.1 MG/DL (0.0-0.3) Aspartate Amino Transf (AST/SGOT) 17 U/L (15-37) Alanine Aminotransferase (ALT/SGPT) 30 U/L (12-78) Alkaline Phosphatase 56 U/L (46-116) Lactate Dehydrogenase 162 U/L (81-234) Total Protein 6.1 G/DL (6.4-8.2) L Albumin 3.4 G/DL (3.4-5.0) Height (Feet): 5 Height (Inches): 10.00 Weight (Pounds): 151 Medications Current Medications Medications (Trade) Dose Ordered Sig/Karl Route PRN Reason Start Time Stop Time Status Last Admin Dose Admin Acetaminophen (Tylenol) 650 mg Q4H PRN ORAL Fever 10/22/18 12:30 11/20/18 12:29 Albuterol/ Ipratropium (Albuterol/ Ipratropium) 3 ml Q4H PRN HHN Shortness of Breath 10/22/18 12:30 10/26/18 12:29 Dextrose (Dextrose 50%) 25 ml Q30M PRN IV Hypoglycemia 10/22/18 11:45 11/20/18 21:14 Dextrose (Dextrose 50%) 50 ml Q30M PRN IV Hypoglycemia 10/22/18 11:45 11/20/18 21:14 Dextrose/Sodium Chloride 1,000 ml @ 75 mls/hr [id number] IV 10/22/18 11:45 11/20/18 21:29 10/22/18 11:45 Haloperidol Lactate 5 mg/ Dextrose 56 ml @ 224 mls/hr Q1H PRN IVPB agitation 10/22/18 12:45 11/21/18 12:44 Heparin Sodium (Porcine) (Heparin 5000 units/ml) 5,000 units EVERY 12 HOURS SUBQ 10/22/18 21:00 11/21/18 08:59 Lorazepam (Ativan 2mg/ml 1ml) 2 mg Q2H PRN IV agitation 10/22/18 12:30 10/28/18 12:29 10/22/18 14:43 Morphine Sulfate (Morphine Sulfate) 4 mg Q4H PRN IVP Severe Pain (Pain Scale 7-10) 10/22/18 13:15 10/28/18 21:14 Nitroglycerin (Ntg) 0.4 mg Q5M PRN SL Prn Chest Pain 10/22/18 11:45 11/20/18 21:14 Ondansetron HCl (Zofran) 4 mg Q6H PRN IVP Nausea & Vomiting 10/22/18 12:30 11/20/18 12:29 Assessment/Plan Problem List: (1) Acute metabolic encephalopathy ICD Codes: G93.41 - Metabolic encephalopathy SNOMED: 39360132, [id number] Status: stable Assessment/Plan bilat soft restraints. haldol bendryl prn avoid Elena Moreno MD Oct 22, 2018 22:05
[2018-10-22] MEDS ORDERED: DiphenhydrAMINE 50mg/ml Inj IM PRN (22:15)
[2018-10-22] MEDS ORDERED: Haloperidol 5mg/ml Inj IM PRN (22:15)
[2018-10-22] MEDS: Heparin 5000 units/ml inj SUBQ SCH (22:33)
--- NOTE | 2018-10-22 23:00 | History and Physical Report ---
DATE OF ADMISSION: 10/21/2018 CHIEF COMPLAINT: Altered mental status, medication overdose. HISTORY OF PRESENT ILLNESS: This is a 18-year-old gentleman with past medical history significant for psychiatric disorder, on multiple medication, who presented to the emergency room after he was taking multiple medication, overdose on medication. The patient was found to have bottles of propranolol 40 mg as well as 20 mg, prazosin, olanzapine, and atomoxetine empty at the bedside. The patient stated that he voiced suicidal ideation to his girlfriend. EMS was called. Upon arrival of EMS, the patient was found to be under respiratory distress, unable to understand the patient's mental status, he was very altered and lethargic, and subsequently the patient was given Narcan without any effect. Shortly upon arrival to the ER, the patient was noted in respiratory distress and was intubated. Charcoal was given and the patient subsequently was admitted to ICU. PAST MEDICAL HISTORY/PAST SURGICAL HISTORY: Significant for psychiatric disorder. History is very limited secondary to the patient's status. Most history is taken from the ER chart and EMS. MEDICATIONS: At home, significant for Strattera, olanzapine, prazosin, propranolol. ALLERGIES: No known drug allergies. SOCIAL HISTORY: Unknown. FAMILY HISTORY: Noncontributory. REVIEW OF SYSTEMS: Very limited secondary to the patient's status. No fever or chills was reported. PHYSICAL EXAMINATION: VITAL SIGNS: On arrival, temperature 98.1, pulse of 102, respirations 18, and blood pressure 112/76. GENERAL: The patient is awake, lethargic, and responsive to questioning by opening his eyes only. HEAD AND NECK: Pupils are reactive to light. Extraocular movements are intact. NECK: Supple. No JVD. LUNGS: Good air entry. Poor inspiratory effort. No wheezes or rhonchi. HEART: S1, S2. Distant heart sounds. No gallops. ABDOMEN: Soft, nondistended, nontender. Positive bowel sounds. EXTREMITIES: No cyanosis, clubbing, or edema. NEUROLOGIC: Very limited secondary to the patient's status. The patient is moving extremities slowly, however, cannot follow commands or open his eyes for a long period of time. LABORATORY AND DIAGNOSTIC DATA: Laboratory on admission, WBC of 10, hemoglobin 15, hematocrit 43, and platelets is 303,000. Sodium 145, potassium 3.4, chloride 111, bicarb 25, BUN 14, creatinine 0.8, glucose 73, AST of 14, ALT of 30. First troponin is 0.00. PT 11, INR 1.1, and PTT of 26. Urinalysis +1 protein, +1 ketone, +1 leukocyte esterase. Urine drug screen is positive for marijuana, negative for salicylate, negative for acetaminophen, negative for alcohol. ABG, pH of 7.41, pCO2 of 34, pO2 of 306. CT of the brain was done in the ER. Official report is still pending. Preliminary result shows that the patient has no acute finding. ASSESSMENT: 1. Acute respiratory failure. 2. Altered mental status, most likely secondary to acute metabolic encephalopathy. 3. Medication overdose. 4. Suicidal attempt. 5. Psychiatric disorder, possible schizophrenia. PLAN: Admit the patient to ICU. Initially, the patient has been successfully extubated by now, off the intubation. Spontaneous breathing. Transferred to medical floor. Code status is Full Code. DVT prophylaxis, SCD. Follow up with Pulmonary Critical Care consultation with Dr. Daniels and psychiatric consultation with Dr. Arellano. Emiliano Song M.D. DR: GERSON JOB#: [id number] CC:
[2018-10-23] VITALS: BP 122/75
[2018-10-23] MEDS: D5 1/2NS 1,000 ML IV SCH (01:11)
--- NOTE | 2018-10-23 05:18 | NUR ---
NURSE NOTES: Patient refused blood lab draw. Patient says " Fuck, I am gonna cut your throat".
--- NOTE | 2018-10-23 07:08 | NUR ---
HAND-OFF: Report given to Autumn MALONEY.
[2018-10-23 08:00] VITALS: BP 121/60
--- NOTE | 2018-10-23 08:00 | NUR ---
NURSE NOTES: RECEIVED PATIENT IN BED, RESTING AND ALERT TO NAME. PATIENT GARBLES SPEECH, DOES NOT ANSWER QUESTIONS DIRECTLY. NO SIGNS OF RESPIRATORY DISTRESS, PATIENT ON NC 2L. IV INTACT RUNNING IV FLUIDS. NGUYEN CATHETER DRAINING YELLOW URINE. BED IN LOWEST POSITION, CALL LIGHT WITHIN REACH. WILL CONTINUE TO MONITOR. Addendum: 10/23/18 at 0928 by DENYS WASHINGTON RN RN SITTER AT BEDSIDE.
[2018-10-23] MEDS: Heparin 5000 units/ml inj SUBQ SCH ×3 (08:41→20:48)
--- NOTE | 2018-10-23 11:48 | Pulmonology Progress Note ---
Assessment/Plan Problems: (1) Acute respiratory failure (2) Acute metabolic encephalopathy (3) Drug overdose (4) Suicidal ideation Assessment/Plan symptomatic treatment dc iv fluids prn haldol start seroquel Subjective ROS Limited/Unobtainable: No Constitutional: Reports: no symptoms HEENT: Repors: no symptoms Allergies: Coded Allergies: No Known Allergies (Unverified , 10/21/18) Objective Last 24 Hour Vital Signs Date Time Temp Pulse Resp B/P (MAP) Pulse Ox O2 Delivery O2 Flow Rate FiO2 10/23/18 09:00 Room Air Room Air 10/23/18 08:00 97.0 83 16 121/60 (80) 99 83 10/23/18 00:00 97.7 100 20 122/75 (91) 94 10/22/18 21:00 Room Air Room Air 10/22/18 20:00 98.2 101 20 153/64 (93) 98 10/22/18 16:00 98.1 101 20 111/65 (80) 98 Intake and Output 10/22/18 10/23/18 18:59 06:59 Intake Total 463.75 ml 900 ml Output Total 4270 ml 1500 ml Balance -3806.25 ml -600 ml Intake Oral 50 ml IV Total 413.75 ml 900 ml Output Urine Total 4270 ml 1500 ml Objective General Appearance: WD/WN Lines, tubes and drains: peripheral HEENT: normocephalic, anicteric Neck: non-tender, normal alignment Respiratory/Chest: chest wall non-tender, lungs clear Breasts: no masses Cardiovascular/Chest: normal peripheral pulses Abdomen: normal bowel sounds Genitourinary/Rectal: normal genital Microbiology Date/Time Source Procedure Growth Status 10/21/18 21:20 Rectum Received Current Medications Medications (Trade) Dose Ordered Sig/Karl Route PRN Reason Start Time Stop Time Status Last Admin Dose Admin Acetaminophen (Tylenol) 650 mg Q4H PRN ORAL Fever 10/22/18 12:30 11/20/18 12:29 Albuterol/ Ipratropium (Albuterol/ Ipratropium) 3 ml Q4H PRN HHN Shortness of Breath 10/22/18 12:30 10/26/18 12:29 Dextrose (Dextrose 50%) 25 ml Q30M PRN IV Hypoglycemia 10/22/18 11:45 11/20/18 21:14 Dextrose (Dextrose 50%) 50 ml Q30M PRN IV Hypoglycemia 10/22/18 11:45 11/20/18 21:14 Dextrose/Sodium Chloride 1,000 ml @ 75 mls/hr [id number] IV 10/22/18 11:45 11/20/18 21:29 10/23/18 01:11 Diphenhydramine HCl (Benadryl) 25 mg EVERY 6 HOURS PRN IM anxiety 10/22/18 22:15 11/21/18 22:14 10/22/18 22:34 Haloperidol Lactate (Haldol) 5 mg Q6H PRN IM Agitation 10/22/18 22:15 11/21/18 22:14 10/22/18 22:54 Heparin Sodium (Porcine) (Heparin 5000 units/ml) 5,000 units EVERY 12 HOURS SUBQ 10/22/18 21:00 11/21/18 08:59 10/22/18 22:33 Morphine Sulfate (Morphine Sulfate) 4 mg Q4H PRN IVP Severe Pain (Pain Scale 7-10) 10/22/18 13:15 10/28/18 21:14 Nitroglycerin (Ntg) 0.4 mg Q5M PRN SL Prn Chest Pain 10/22/18 11:45 11/20/18 21:14 Ondansetron HCl (Zofran) 4 mg Q6H PRN IVP Nausea & Vomiting 10/22/18 12:30 11/20/18 12:29 Tuan Daniels MD Oct 23, 2018 11:47
[2018-10-23 12:00] VITALS: BP 119/85
--- NOTE | 2018-10-23 14:00 | NUR ---
NURSE NOTES: PATIENT WOKE UP, ALERT AND SHOWING SYMPTOMS OF PANIC ATTACK. WAS UNAWARE HOW HE GOT HERE OR WHERE HE IS. ASSISTED IN CALMING AND DISTRACTION METHODS, ONCE PATIENT CALMED DOWN WENT OVER WHAT HAPPENED. PATIENT C/O EXTREME PAIN AT NGUYEN SITE. F/C REMOVED AFTER GETTING ORDER FROM DR. SHAH. NGUYEN CATHETER REMOVED SAFELY AND WITHOUT COMPLICATIONS. LATER, PATIENT REFUSED TO CALL FAMILY, STATING THEY WILL BE "MAD AT ME, THEY DON'T CARE ABOUT ME". PATIENT ASKED TO USE HIS CELL PHONE; PHONE GIVEN TO HIM. PATIENT CALLED PERSON, BUT DID NOT WANT TO SAY WHO. AFTER, PATIENT ATE AND THEN FELL ASLEEP.
--- NOTE | 2018-10-23 14:19 | NUR ---
CASE MANAGEMENT: REVIEW 10/23/2018 SI:OVERDOSE T 97 HR 83 RR 16 B/P 121/60 SATS 99% ON RA NO LABS TODAY IS:SEROQUEL PO Q12H MED/SURG STATUS PLAN OF CARE: PSYCH TRANSFER
[2018-10-23 16:00] VITALS: BP 120/74
--- NOTE | 2018-10-23 17:46 | Internal Med Progress Note ---
Subjective Date of Service: Oct 23, 2018 Physician Name Charly Yeh Attending Physician Emiliano Song MD Current Medications Medications (Trade) Dose Ordered Sig/Karl Route PRN Reason Start Time Stop Time Status Last Admin Dose Admin Acetaminophen (Tylenol) 650 mg Q4H PRN ORAL Fever 10/22/18 12:30 11/20/18 12:29 Dextrose (Dextrose 50%) 25 ml Q30M PRN IV Hypoglycemia 10/22/18 11:45 11/20/18 21:14 Dextrose (Dextrose 50%) 50 ml Q30M PRN IV Hypoglycemia 10/22/18 11:45 11/20/18 21:14 Haloperidol Lactate (Haldol) 5 mg Q6H PRN IM Agitation 10/22/18 22:15 11/21/18 22:14 10/22/18 22:54 Heparin Sodium (Porcine) (Heparin 5000 units/ml) 5,000 units EVERY 12 HOURS SUBQ 10/22/18 21:00 11/21/18 08:59 10/22/18 22:33 Quetiapine Fumarate (SEROquel) 50 mg Q12HR ORAL 10/23/18 21:00 11/22/18 20:59 Allergies: Coded Allergies: No Known Allergies (Unverified , 10/21/18) ROS Limited/Unobtainable: Yes Subjective 18 YO M admitted with Intentional overdose as suicide attempt. Cover for Int Med-Dr Song. [place], but arousable Objective Last Vital Signs Date Time Temp Pulse Resp B/P (MAP) Pulse Ox O2 Delivery O2 Flow Rate FiO2 10/23/18 16:00 97.3 103 16 120/74 (89) 100 103 10/23/18 09:00 Room Air Room Air 10/22/18 10:10 2.0 28 Microbiology Date/Time Source Procedure Growth Status 10/21/18 21:20 Rectum Received Intake and Output 10/22/18 10/23/18 19:00 07:00 Intake Total 463.75 ml 825 ml Output Total 4225 ml 1500 ml Balance -3761.25 ml -675 ml Intake Oral 50 ml IV Total 413.75 ml 825 ml Output Urine Total 4225 ml 1500 ml Objective PHYSICAL EXAMINATION: VITAL SIGNS: On arrival, temperature 98.1, pulse of 102, respirations 18, and blood pressure 112/76. GENERAL: The patient is awake, lethargic, and responsive to questioning by opening his eyes only. HEAD AND NECK: Pupils are reactive to light. Extraocular movements are intact. NECK: Supple. No JVD. LUNGS: Good air entry. Poor inspiratory effort. No wheezes or rhonchi. HEART: S1, S2. Distant heart sounds. No gallops. ABDOMEN: Soft, nondistended, nontender. Positive bowel sounds. EXTREMITIES: No cyanosis, clubbing, or edema. NEUROLOGIC: Very limited secondary to the patient's status. The patient is moving extremities slowly, however, cannot follow commands or open his eyes for a long period of time. Assessment/Plan Problem List: (1) Suicide attempt by beta kathie overdose Assessment & Plan: See psychiatry note (2) Drug overdose (3) Acute metabolic encephalopathy (4) Acute respiratory failure Assessment & Plan: Tolerating room air Charly Yeh MD Oct 23, 2018 17:46
--- NOTE | 2018-10-23 18:28 | NUR ---
NURSE NOTES: ASKED PATIENT IF HE WAS HAVING SUICIDAL THOUGHTS OR IDEATIONS, PATIENT RESPONDED BY NODDING HEAD YES. NOTIFIED DR. ATKINS. SITTER AT BEDSIDE. DR. SHARMA MADE AWARE WELL. RESTRAINTS DC'D. PATIENT STABLE.
[2018-10-23] MEDS ORDERED: WELLBUTRIN XL150 MG ORAL (19:16)
--- NOTE | 2018-10-23 19:16 | NUR ---
NURSE NOTES: PATIENT DISCLOSED HX OF PSORIATIC ARTHRITIS, DEPRESSION, BIPOLAR, AND PTSD. HE STATES HE TAKES PROPANOLOL BUT ONLY KNOWS IT IS FOR FAST HEART RATE. NOTIFIED DR. ATKINS, HOME MED LIST UPDATED WITH [facility]. PATIENT STATED HE VOIDED. SITTER AT BEDSIDE. WILL CONTINUE TO MONITOR.
--- NOTE | 2018-10-23 19:18 | NUR ---
HAND-OFF: Report given to HAIDER DIALLO.
--- NOTE | 2018-10-23 19:20 | NUR ---
NURSE NOTES: received pt from day shift nurse. sitter at bedside. pt in bed. pt answering questions with a no yes answer. pt in stable condition. no acute distress. asked pt is he wants to hurt himself he answered "yes". safety precaution in place. will continue to monitor.
[2018-10-23 20:00] VITALS: BP 109/74
--- NOTE | 2018-10-23 20:48 | NUR ---
pt refused Seroquel and heparin, education provided about risks, pt still refused. heparin was in the syringe ready for administration this sign writer hand wasted heparin in front of sitter.
--- NOTE | 2018-10-24 02:39 | NUR ---
NURSE NOTES: pt sleeping no acute distress no s/s of discomfort or pain. will continue to monitor
--- NOTE | 2018-10-24 04:10 | NUR ---
NURSE NOTES: pt refused VS for 00:00 and 04:00 AM education provided pt still refused.
--- NOTE | 2018-10-24 06:30 | NUR ---
pt refused blood draw, education provided pt still refusing.
[2018-10-24 07:09] VITALS: BP 110/76
--- NOTE | 2018-10-24 07:30 | NUR ---
HAND-OFF: Report given to Letitia. HAIDER.pt remains in stable condition, no change in condition during my shift. sitter at bedside.
[2018-10-24] MEDS: Heparin 5000 units/ml inj SUBQ SCH ×2 (08:30→21:00)
[2018-10-24] MEDS: DULoxetine 30mg cap ORAL SCH (08:30)
--- NOTE | 2018-10-24 09:02 | NUR ---
NURSE NOTES: Received patient awake, alert, in bed eating breakfast. Denies any pain at this time. Sitter at bedside. All needs attended. Call light made within reach. will cont to monitor patient.
--- NOTE | 2018-10-24 13:03 | Pulmonology Progress Note ---
Assessment/Plan Problems: (1) Suicidal ideation (2) Acute metabolic encephalopathy (3) Drug overdose (4) PTSD (post-traumatic stress disorder) (5) Bipolar disorder (6) Acute respiratory failure Assessment & Plan: resolved Assessment/Plan symptomatic treatment dc iv fluids prn haldol start seroquel Subjective ROS Limited/Unobtainable: No Interval Events: awake, feeling better Allergies: Coded Allergies: No Known Allergies (Unverified , 10/21/18) Objective Last 24 Hour Vital Signs Date Time Temp Pulse Resp B/P (MAP) Pulse Ox O2 Delivery O2 Flow Rate FiO2 10/24/18 09:00 Room Air Room Air 10/24/18 07:09 97.3 78 20 110/76 (87) 98 103 10/23/18 21:00 Room Air Room Air 10/23/18 20:00 98.2 101 20 109/74 (86) 96 103 10/23/18 16:00 97.3 103 16 120/74 (89) 100 103 Intake and Output 10/23/18 10/24/18 19:00 07:00 Intake Total 360 ml 340 ml Balance 360 ml 340 ml Intake Oral 360 ml 340 ml # Voids 1 1 Objective General Appearance: WD/WN Lines, tubes and drains: peripheral HEENT: normocephalic, anicteric Neck: non-tender, normal alignment Respiratory/Chest: chest wall non-tender, lungs clear Breasts: no masses Cardiovascular/Chest: normal peripheral pulses Abdomen: normal bowel sounds Genitourinary/Rectal: normal genital Microbiology Date/Time Source Procedure Growth Status 10/21/18 21:20 Nasal Nares MRSA Culture - Final NO METHICILLIN RESISTANT STAPH AUREUS... Complete 10/22/18 21:10 Rectum - Final NO CARBAPENEM-RESISTANT ENTEROBACTERI... Complete 10/21/18 21:20 Rectum VRE Culture - Final NO VANCOMYCIN RESISTANT ENTEROCOCCUS ... Complete Current Medications Medications (Trade) Dose Ordered Sig/Karl Route PRN Reason Start Time Stop Time Status Last Admin Dose Admin Acetaminophen (Tylenol) 650 mg Q4H PRN ORAL Fever 10/22/18 12:30 11/20/18 12:29 10/23/18 20:22 Dextrose (Dextrose 50%) 25 ml Q30M PRN IV Hypoglycemia 10/22/18 11:45 11/20/18 21:14 Dextrose (Dextrose 50%) 50 ml Q30M PRN IV Hypoglycemia 10/22/18 11:45 11/20/18 21:14 Duloxetine HCl (Cymbalta) 30 mg DAILY ORAL 10/24/18 09:00 11/23/18 08:59 Haloperidol Lactate (Haldol) 5 mg Q6H PRN IM Agitation 10/22/18 22:15 11/21/18 22:14 10/22/18 22:54 Heparin Sodium (Porcine) (Heparin 5000 units/ml) 5,000 units EVERY 12 HOURS SUBQ 10/22/18 21:00 11/21/18 08:59 10/22/18 22:33 Lamotrigine (LaMICtal) 25 mg DAILY ORAL 10/24/18 09:00 11/23/18 08:59 Olanzapine (ZyPREXA) 10 mg BEDTIME ORAL 10/24/18 21:00 11/23/18 20:59 Tuan Daniels MD Oct 24, 2018 13:03
--- NOTE | 2018-10-24 13:07 | NUR ---
CASE MANAGEMENT: REVIEW SI: OVERDOSE . SUICIDAL IDEATION . ENCEPHALOPATHY S/P ORAL INTUBATION T 97.3 HR 103 RR 20 BP 110/76 SAT 96% ROOM AIR IS: ZYPREXA PO QHS CYMBALTA PO QD LAMICTAL PO QD HALDOL IM PRN MONITOR OFF RESTRAINTS MED/SURG STATUS DCP: PATIENT IS FROM HOME . MD ORDER / TRANSFER TO PSYCH FACILITY
[2018-10-24] MEDS ORDERED: Zemuron 50mg/5ml Inj IV ONE (13:52)
[2018-10-24] MEDS ORDERED: Etomidate 40mg/20ml Inj IV ONE (13:52)
[2018-10-24 16:00] VITALS: BP 116/88
--- NOTE | 2018-10-24 16:15 | Internal Med Progress Note ---
Subjective Date of Service: Oct 24, 2018 Physician Name Charly Yeh Attending Physician Emiliano Song MD Current Medications Medications (Trade) Dose Ordered Sig/Karl Route PRN Reason Start Time Stop Time Status Last Admin Dose Admin Acetaminophen (Tylenol) 650 mg Q4H PRN ORAL Fever 10/22/18 12:30 11/20/18 12:29 10/23/18 20:22 Dextrose (Dextrose 50%) 25 ml Q30M PRN IV Hypoglycemia 10/22/18 11:45 11/20/18 21:14 Dextrose (Dextrose 50%) 50 ml Q30M PRN IV Hypoglycemia 10/22/18 11:45 11/20/18 21:14 Duloxetine HCl (Cymbalta) 30 mg DAILY ORAL 10/24/18 09:00 11/23/18 08:59 Haloperidol Lactate (Haldol) 5 mg Q6H PRN IM Agitation 10/22/18 22:15 11/21/18 22:14 10/22/18 22:54 Heparin Sodium (Porcine) (Heparin 5000 units/ml) 5,000 units EVERY 12 HOURS SUBQ 10/22/18 21:00 11/21/18 08:59 10/22/18 22:33 Lamotrigine (LaMICtal) 25 mg DAILY ORAL 10/24/18 09:00 11/23/18 08:59 Olanzapine (ZyPREXA) 10 mg BEDTIME ORAL 10/24/18 21:00 11/23/18 20:59 Allergies: Coded Allergies: No Known Allergies (Unverified , 10/21/18) Subjective 18 YO M admitted with Intentional overdose as suicide attempt. Cover for Int Med-Dr Song. [place], but arousable Objective Last Vital Signs Date Time Temp Pulse Resp B/P (MAP) Pulse Ox O2 Delivery O2 Flow Rate FiO2 10/24/18 09:00 Room Air Room Air 10/24/18 07:09 97.3 78 20 110/76 (87) 98 103 10/22/18 10:10 2.0 28 Microbiology Date/Time Source Procedure Growth Status 10/21/18 21:20 Nasal Nares MRSA Culture - Final NO METHICILLIN RESISTANT STAPH AUREUS... Complete 10/22/18 21:10 Rectum - Final NO CARBAPENEM-RESISTANT ENTEROBACTERI... Complete 10/21/18 21:20 Rectum VRE Culture - Final NO VANCOMYCIN RESISTANT ENTEROCOCCUS ... Complete Intake and Output 10/23/18 10/24/18 18:59 06:59 Intake Total 360 ml 340 ml Balance 360 ml 340 ml Intake Oral 360 ml 340 ml # Voids 1 1 Objective PHYSICAL EXAMINATION: VITAL SIGNS: On arrival, temperature 98.1, pulse of 102, respirations 18, and blood pressure 112/76. GENERAL: The patient is awake, lethargic, and responsive to questioning by opening his eyes only. HEAD AND NECK: Pupils are reactive to light. Extraocular movements are intact. NECK: Supple. No JVD. LUNGS: Good air entry. Poor inspiratory effort. No wheezes or rhonchi. HEART: S1, S2. Distant heart sounds. No gallops. ABDOMEN: Soft, nondistended, nontender. Positive bowel sounds. EXTREMITIES: No cyanosis, clubbing, or edema. NEUROLOGIC: Very limited secondary to the patient's status. The patient is moving extremities slowly, however, cannot follow commands or open his eyes for a long period of time. Assessment/Plan Problem List: (1) Suicide attempt by beta kathie overdose Assessment & Plan: See psychiatry note (2) Drug overdose (3) Acute metabolic encephalopathy (4) Acute respiratory failure Assessment & Plan: Tolerating room air Charly Yeh MD Oct 24, 2018 16:15
--- NOTE | 2018-10-24 19:35 | NUR ---
HAND-OFF: Report given to HAIDER Alvarez.
--- NOTE | 2018-10-24 19:36 | NUR ---
NURSE NOTES: Received patient awake, alert, in supine position. Denies any pain at this time. Madeline Castro CNA, at bedside. All needs attended to. Call light within reach. Bed is locked in lowest position, locked, side rails x2. Will continue to monitor patient.
[2018-10-24 20:00] VITALS: BP 127/62
[2018-10-24] MEDS: OLANZapine 10mg tab ORAL SCH (21:48)
[2018-10-25] VITALS (7 sets, daily range): BP systolic 100–130; BP diastolic 51–88
[2018-10-25 07:07] LABS: BASOPHILS % (AUTO) 0.7 % (0.0-2.0); EOSINOPHILS % (AUTO) 4.1 % (0.0-3.0); HEMATOCRIT 45.7 % (42.0-52.0); HEMOGLOBIN 15.9 G/DL (14.2-18.0); MEAN CORPUSCULAR VOLUME 86 FL (80-99); MONOCYTES % (AUTO) 8.6 % (1.0-10.0); NEUTROPHILS % (AUTO) 64.6 % (45.0-75.0); PLATELET COUNT 255 K/UL (150-450); RED CELL DISTRIBUTION WIDTH 11.3 % (11.6-14.8); WHITE BLOOD COUNT 9.9 K/UL (4.8-10.8)
[2018-10-25 07:10] LABS: ALANINE AMINOTRANSFERASE 29 U/L (12-78); ALBUMIN 3.8 G/DL (3.4-5.0); ALKALINE PHOSPHATASE 72 U/L (46-116); ANION GAP 10 mmol/L (5-15); ASPARTATE AMINO TRANSFERASE 20 U/L (15-37); BILIRUBIN,TOTAL 0.4 MG/DL (0.2-1.0); BLOOD UREA NITROGEN 23 mg/dL (7-18); CALCIUM 9.5 MG/DL (8.5-10.1); CARBON DIOXIDE 27 MMOL/L (21-32); CHLORIDE 105 MMOL/L (98-107); CREATININE 1.1 MG/DL (0.55-1.30); PHOSPHORUS 4.3 MG/DL (2.5-4.9); POTASSIUM 3.7 MMOL/L (3.5-5.1); SODIUM 142 MMOL/L (136-145)
--- NOTE | 2018-10-25 07:35 | NUR ---
NURSE NOTES: Received patient awake, no sign of distress, denies pain or discomfort Sitter,at bedside. on fall precaution All needs attended to. Call light within reach. Bed is locked in lowest position, locked, side rails x2. Will continue to monitor patient. ramon lezama
[2018-10-25] MEDS: DULoxetine 30mg cap ORAL SCH (08:12)
[2018-10-25] MEDS: Heparin 5000 units/ml inj SUBQ SCH ×2 (08:13→20:00)
--- NOTE | 2018-10-25 08:45 | NUR ---
nurse notes patient awake, alert oriented x4, denies pain , ambulate with steady gait, accompanied by sitter, patient calm and quiet , cooperative, listen attentively ,stated no plan of killing himself , he even ask to take a shower, will notify MD for order due to admitting dx, will continue to observe patient for suicidal issue lise,
--- NOTE | 2018-10-25 11:30 | NUR ---
nurse notes seen and examined by Dr Arellano, per Dr Arellano, patient agreed with the plan of care, patient calm and quiet and stated he will cooperate with the plan of care, Charge nurse Mat at bedside, Dr Arellano dcmann sitter and will start with robi daigle, ramon
[2018-10-25] MEDS: LORazepam 1mg tab ORAL PRN ×2 (11:39→19:58)
--- NOTE | 2018-10-25 11:48 | NUR ---
Social Service Note SOPHIE met with patient who is alert, oriented and verbally responsive. Patient denies suicidal ideations. Patient states he and his girlfriend Tai travelled from [place] to [place] as something to do. Since patient's hospitalization patient states his girlfriend returned to [place]. Patient states he and his girlfriend were not in [place] for to long before they started getting into arguments. Patient was looking to get high and thought his girlfriend was going to break up with him. Patient states he has had prior hospitalization due to attempts of self harm and accidental overdoses. Patient states he is speaking with his family about returning to [place] once discharged. Patient states he will take the [employer] bus back home. Patient also states he has spoke with Lujan [phone] and understand that they didn't have a healthy relationship and is ok with break up. SOPHIE spoke with patient's mother Rain Montgomery [phone]. Patient's mother states patient has been hospitalized 8 times since July due to self harm attempts and Overdoes. Mother states patient was diagnosed with bipolar disorder when he was 12. Patient however started using drug at the age of 10. Mother feels substance abuse is the patient's main issue and his mental health disorder is secondary or exacerbated by his drug use. Mother has attempted treatment programs however patient leaves after 2 to 3 days. Mother states patient has additional insurance for patient Aetha and will email SOPHIE patient's health insurance cards. SOPHIE discuss family picking patient up to transport back to [place]. Mother states she will speak to her before making a decision of assisting with transportation. Mother initially appeared in agreement with [employer] transportation. Mother will follow up with SOPHIE. Insurance information provided to admitting. Will monitor.
--- NOTE | 2018-10-25 12:45 | NUR ---
nurse notes [address] Arellano order to give ativan now, educate patient regarding the medication and side effects 1220 eating lunch at this time, no sign of agitation, 1245 resting comfortably in bed, will continue to monotor patient for suiciadal issue, fall risk , and elopement , ramon lezama
--- NOTE | 2018-10-25 13:07 | Pulmonology Progress Note ---
Assessment/Plan Problems: (1) Suicidal ideation (2) Acute metabolic encephalopathy (3) Drug overdose (4) PTSD (post-traumatic stress disorder) (5) Bipolar disorder (6) Acute respiratory failure Assessment & Plan: resolved Assessment/Plan symptomatic treatment dc iv fluids prn haldol much better spirit today, wants to go back to [place] Subjective Constitutional: Reports: no symptoms HEENT: Repors: no symptoms Allergies: Coded Allergies: No Known Allergies (Unverified , 10/21/18) Objective Last 24 Hour Vital Signs Date Time Temp Pulse Resp B/P (MAP) Pulse Ox O2 Delivery O2 Flow Rate FiO2 10/25/18 11:33 97.9 92 21 127/79 (95) 97 10/25/18 08:20 Room Air Room Air 10/25/18 08:14 97.7 80 18 121/70 (87) 97 66 10/25/18 06:58 97.5 10/25/18 04:00 75 17 125/77 (93) 99 75 10/25/18 00:00 98.3 65 17 100/51 (67) 98 65 10/24/18 21:00 Room Air Room Air 10/24/18 20:00 99.3 66 18 127/62 (83) 100 66 10/24/18 16:00 97.8 68 20 116/88 (97) 98 98 Intake and Output 10/24/18 10/25/18 19:00 07:00 Output Total 450 ml Balance -450 ml Output Urine Total 450 ml Objective General Appearance: WD/WN Lines, tubes and drains: peripheral HEENT: normocephalic, anicteric Neck: non-tender, normal alignment Respiratory/Chest: chest wall non-tender, lungs clear Breasts: no masses Cardiovascular/Chest: normal peripheral pulses Abdomen: normal bowel sounds Genitourinary/Rectal: normal genital Microbiology Date/Time Source Procedure Growth Status 10/22/18 21:10 Rectum - Final NO CARBAPENEM-RESISTANT ENTEROBACTERI... Complete Laboratory Tests 10/25/18 05:50: White Blood Count 9.9, Red Blood Count 5.30, Hemoglobin 15.9, Hematocrit 45.7, Mean Corpuscular Volume 86, Mean Corpuscular Hemoglobin 30.1, Mean Corpuscular Hemoglobin Concent 34.8, Red Cell Distribution Width 11.3L, Platelet Count 255, Mean Platelet Volume 6.7, Neutrophils (%) (Auto) 64.6, Lymphocytes (%) (Auto) 22.0, Monocytes (%) (Auto) 8.6, Eosinophils (%) (Auto) 4.1H, Basophils (%) (Auto ) 0.7, Sodium Level 142, Potassium Level 3.7, Chloride Level 105, Carbon Dioxide Level 27, Anion Gap 10, Blood Urea Nitrogen 23H, Creatinine 1.1, Estimat Glomerular Filtration Rate > 60, Glucose Level 95, Calcium Level 9.5, Phosphorus Level 4.3, Magnesium Level 1.9, Total Bilirubin 0.4, Aspartate Amino Transf (AST/SGOT) 20, Alanine Aminotransferase (ALT/SGPT) 29, Alkaline Phosphatase 72, Total Protein 7.5, Albumin 3.8, Globulin 3.7, Albumin/Globulin Ratio 1.0 Current Medications Medications (Trade) Dose Ordered Sig/Karl Route PRN Reason Start Time Stop Time Status Last Admin Dose Admin Acetaminophen (Tylenol) 650 mg Q4H PRN ORAL Fever 10/22/18 12:30 11/20/18 12:29 10/23/18 20:22 Bupropion HCl (Wellbutrin XL) 150 mg DAILY ORAL 10/26/18 09:00 11/25/18 08:59 Dextrose (Dextrose 50%) 25 ml Q30M PRN IV Hypoglycemia 10/22/18 11:45 11/20/18 21:14 Dextrose (Dextrose 50%) 50 ml Q30M PRN IV Hypoglycemia 10/22/18 11:45 11/20/18 21:14 Duloxetine HCl (Cymbalta) 30 mg DAILY ORAL 10/24/18 09:00 11/23/18 08:59 10/25/18 08:12 Haloperidol Lactate (Haldol) 5 mg Q6H PRN IM Agitation 10/22/18 22:15 11/21/18 22:14 10/22/18 22:54 Heparin Sodium (Porcine) (Heparin 5000 units/ml) 5,000 units EVERY 12 HOURS SUBQ 10/22/18 21:00 11/21/18 08:59 10/22/18 22:33 Lorazepam (Ativan) 1 mg Q6H PRN ORAL For Anxiety 10/25/18 11:30 11/01/18 11:29 10/25/18 11:39 Olanzapine (ZyPREXA) 10 mg BEDTIME ORAL 10/24/18 21:00 11/23/18 20:59 10/24/18 21:48 Tuan Daniels MD Oct 25, 2018 13:07
[2018-10-25] MEDS ORDERED: CYMBALTA30 MG ORAL (13:09)
[2018-10-25] MEDS ORDERED: OLANZAPINE10 MG ORAL (13:09)
[2018-10-25] MEDS ORDERED: WELLBUTRIN XL150 M3 ORAL (13:09)
--- NOTE | 2018-10-25 16:25 | NUR ---
*-* NO INSURANCE IN THE BAR TO SEND CLINICALS OR REVIEWS*-*
--- NOTE | 2018-10-25 19:21 | NUR ---
HAND-OFF: Report given to Ms Raquel RN accordingly ramon lezama.
--- NOTE | 2018-10-25 19:21 | NUR ---
NURSE NOTES: Received patient awake, alert and oriented x4, in supine position. Denies any pain at this time. All needs attended to. Call light within reach. Bed is locked in lowest position, locked, side rails x2. Pt denies suicidal ideation at present. Pt steady and ambulates frequently in hallway. Verbalized understanding to stay within the unit. Will continue to monitor patient.
--- NOTE | 2018-10-25 19:34 | Cardiology Report ---
APPROVED REPORT EKG Measurement Heart [id number] MI [id number] Normal sinus rhythm Right bundle branch block Abnormal ECG
[2018-10-25] MEDS: OLANZapine 10mg tab ORAL SCH (20:00)
--- NOTE | 2018-10-25 20:29 | Internal Med Progress Note ---
Subjective Date of Service: Oct 25, 2018 Physician Name Charly Yeh Attending Physician Emiliano Song MD Current Medications Medications (Trade) Dose Ordered Sig/Karl Route PRN Reason Start Time Stop Time Status Last Admin Dose Admin Acetaminophen (Tylenol) 650 mg Q4H PRN ORAL Fever 10/22/18 12:30 11/20/18 12:29 10/23/18 20:22 Bupropion HCl (Wellbutrin XL) 150 mg DAILY ORAL 10/26/18 09:00 11/25/18 08:59 Dextrose (Dextrose 50%) 25 ml Q30M PRN IV Hypoglycemia 10/22/18 11:45 11/20/18 21:14 Dextrose (Dextrose 50%) 50 ml Q30M PRN IV Hypoglycemia 10/22/18 11:45 11/20/18 21:14 Duloxetine HCl (Cymbalta) 30 mg DAILY ORAL 10/24/18 09:00 11/23/18 08:59 10/25/18 08:12 Haloperidol Lactate (Haldol) 5 mg Q6H PRN IM Agitation 10/22/18 22:15 11/21/18 22:14 10/22/18 22:54 Heparin Sodium (Porcine) (Heparin 5000 units/ml) 5,000 units EVERY 12 HOURS SUBQ 10/22/18 21:00 11/21/18 08:59 10/22/18 22:33 Lorazepam (Ativan) 1 mg Q6H PRN ORAL For Anxiety 10/25/18 11:30 11/01/18 11:29 10/25/18 19:58 Olanzapine (ZyPREXA) 10 mg BEDTIME ORAL 10/24/18 21:00 11/23/18 20:59 10/25/18 20:00 Allergies: Coded Allergies: No Known Allergies (Unverified , 10/21/18) ROS Limited/Unobtainable: No Constitutional: Reports: no symptoms HEENT: Reports: no symptoms Cardiovascular: Reports: no symptoms Respiratory: Reports: no symptoms Gastrointestinal/Abdominal: Reports: no symptoms Genitourinary: Reports: no symptoms Neurologic/Psychiatric: Reports: no symptoms Subjective 18 YO M admitted with Intentional overdose as suicide attempt. Cover for Int Juan C-Dr Song. Objective Last Vital Signs Date Time Temp Pulse Resp B/P (MAP) Pulse Ox O2 Delivery O2 Flow Rate FiO2 10/25/18 16:38 98.8 79 22 130/88 (102) 99 10/25/18 08:20 Room Air Room Air 10/22/18 10:10 2.0 28 Laboratory Tests Test 10/25/18 05:50 White Blood Count 9.9 K/UL (4.8-10.8) Red Blood Count 5.30 M/UL (4.70-6.10) Hemoglobin 15.9 G/DL (14.2-18.0) Hematocrit 45.7 % (42.0-52.0) Mean Corpuscular Volume 86 FL (80-99) Mean Corpuscular Hemoglobin 30.1 PG (27.0-31.0) Mean Corpuscular Hemoglobin Concent 34.8 G/DL (32.0-36.0) Red Cell Distribution Width 11.3 % (11.6-14.8) L Platelet Count 255 K/UL (150-450) Mean Platelet Volume 6.7 FL (6.5-10.1) Neutrophils (%) (Auto) 64.6 % (45.0-75.0) Lymphocytes (%) (Auto) 22.0 % (20.0-45.0) Monocytes (%) (Auto) 8.6 % (1.0-10.0) Eosinophils (%) (Auto) 4.1 % (0.0-3.0) H Basophils (%) (Auto) 0.7 % (0.0-2.0) Sodium Level 142 MMOL/L (136-145) Potassium Level 3.7 MMOL/L (3.5-5.1) Chloride Level 105 MMOL/L (98-107) Carbon Dioxide Level 27 MMOL/L (21-32) Anion Gap 10 mmol/L (5-15) Blood Urea Nitrogen 23 mg/dL (7-18) H Creatinine 1.1 MG/DL (0.55-1.30) Estimat Glomerular Filtration Rate > 60 mL/min (>60) Glucose Level 95 MG/DL (74-106) Calcium Level 9.5 MG/DL (8.5-10.1) Phosphorus Level 4.3 MG/DL (2.5-4.9) Magnesium Level 1.9 MG/DL (1.8-2.4) Total Bilirubin 0.4 MG/DL (0.2-1.0) Aspartate Amino Transf (AST/SGOT) 20 U/L (15-37) Alanine Aminotransferase (ALT/SGPT) 29 U/L (12-78) Alkaline Phosphatase 72 U/L (46-116) Total Protein 7.5 G/DL (6.4-8.2) Albumin 3.8 G/DL (3.4-5.0) Globulin 3.7 g/dL Albumin/Globulin Ratio 1.0 (1.0-2.7) Microbiology Date/Time Source Procedure Growth Status 10/22/18 21:10 Rectum - Final NO CARBAPENEM-RESISTANT ENTEROBACTERI... Complete Intake and Output 10/24/18 10/25/18 18:59 06:59 Output Total 450 ml Balance -450 ml Output Urine Total 450 ml Objective PHYSICAL EXAMINATION: VITAL SIGNS: On arrival, temperature 98.1, pulse of 102, respirations 18, and blood pressure 112/76. GENERAL: The patient is awake, lethargic, and responsive to questioning by opening his eyes only. HEAD AND NECK: Pupils are reactive to light. Extraocular movements are intact. NECK: Supple. No JVD. LUNGS: Good air entry. Poor inspiratory effort. No wheezes or rhonchi. HEART: S1, S2. Distant heart sounds. No gallops. ABDOMEN: Soft, nondistended, nontender. Positive bowel sounds. EXTREMITIES: No cyanosis, clubbing, or edema. NEUROLOGIC: Very limited secondary to the patient's status. The patient is moving extremities slowly, however, cannot follow commands or open his eyes for a long period of time. Assessment/Plan Problem List: (1) Suicide attempt by beta kathie overdose Assessment & Plan: See psychiatry note (2) Drug overdose (3) Acute metabolic encephalopathy (4) Acute respiratory failure Assessment & Plan: Tolerating room air Assessment/Plan Discharge planning: See soc work note. Charly Yeh MD Oct 25, 2018 20:29
--- NOTE | 2018-10-25 21:25 | General Progress Note ---
Assessment/Plan Problem List: (1) Acute metabolic encephalopathy ICD Codes: G93.41 - Metabolic encephalopathy SNOMED: 99827349, 138840847 (2) Borderline personality disorder ICD Codes: F60.3 - Borderline personality disorder SNOMED: 23840026 (3) Alcohol abuse ICD Codes: F10.10 - Alcohol abuse, uncomplicated SNOMED: 37357978 (4) PTSD (post-traumatic stress disorder) ICD Codes: F43.10 - Post-traumatic stress disorder, unspecified SNOMED: 35721229 Assessment/Plan zyprexa welbutrin cymbalta haldol bendryl prn avoid benzos the parents arranging placement. Subjective Neurologic/Psychiatric: Reports: anxiety, depressed Allergies: Coded Allergies: No Known Allergies (Unverified , 10/21/18) Subjective the pt is doing better, the pt has borderline personality. dw pt and the pt is aware. the pt is having difficulty maintaining relationship. the pt is anxious and has labile mood, inappropriate anger. the pt gets severely anxious if not in control of any situation. the pt has hate and love relationships. The pt has had unstable childhood. the pts parents at young age. in addition the pt has addictive personality. the pt has chronic feeling of emptiness. the pt is not suicidal. In addition the pt stated that he has AVH. Objective Last 24 Hour Vital Signs Date Time Temp Pulse Resp B/P (MAP) Pulse Ox O2 Delivery O2 Flow Rate FiO2 10/25/18 20:00 98.3 97 17 119/78 (92) 99 10/25/18 16:38 98.8 79 22 130/88 (102) 99 10/25/18 11:33 97.9 92 21 127/79 (95) 97 10/25/18 08:20 Room Air Room Air 10/25/18 08:14 97.7 80 18 121/70 (87) 97 66 10/25/18 06:58 97.5 10/25/18 04:00 75 17 125/77 (93) 99 75 10/25/18 00:00 98.3 65 17 100/51 (67) 98 65 Intake and Output 10/24/18 10/25/18 18:59 06:59 Output Total 450 ml Balance -450 ml Output Urine Total 450 ml Laboratory Tests 10/25/18 05:50: White Blood Count 9.9, Red Blood Count 5.30, Hemoglobin 15.9, Hematocrit 45.7, Mean Corpuscular Volume 86, Mean Corpuscular Hemoglobin 30.1, Mean Corpuscular Hemoglobin Concent 34.8, Red Cell Distribution Width 11.3L, Platelet Count 255, Mean Platelet Volume 6.7, Neutrophils (%) (Auto) 64.6, Lymphocytes (%) (Auto) 22.0, Monocytes (%) (Auto) 8.6, Eosinophils (%) (Auto) 4.1H, Basophils (%) (Auto ) 0.7, Sodium Level 142, Potassium Level 3.7, Chloride Level 105, Carbon Dioxide Level 27, Anion Gap 10, Blood Urea Nitrogen 23H, Creatinine 1.1, Estimat Glomerular Filtration Rate > 60, Glucose Level 95, Calcium Level 9.5, Phosphorus Level 4.3, Magnesium Level 1.9, Total Bilirubin 0.4, Aspartate Amino Transf (AST/SGOT) 20, Alanine Aminotransferase (ALT/SGPT) 29, Alkaline Phosphatase 72, Total Protein 7.5, Albumin 3.8, Globulin 3.7, Albumin/Globulin Ratio 1.0 Height (Feet): 5 Height (Inches): 10.00 Weight (Pounds): 145 General Appearance: WD/WN, no apparent distress, alert Neurologic: oriented x 3, responsive, normal mood/affect Elena Arellano MD Oct 25, 2018 21:25
[2018-10-26 04:00] VITALS: BP 111/75
--- NOTE | 2018-10-26 07:19 | NUR ---
HAND-OFF: Report given to HAIDER Jacobson.
--- NOTE | 2018-10-26 07:50 | NUR ---
NURSE NOTES: Patient alert x4, on room air, no sign of distress and shortness of breath; no sign of chest pain; IV Right For-Arm, flushes well; patient ambulatory; call light within reach; bed at lowest position, side rails up x2, breaks engaged; will keep monitoring.
[2018-10-26 08:00] VITALS: BP 133/90
[2018-10-26] MEDS: DULoxetine 30mg cap ORAL SCH (08:23)
[2018-10-26] MEDS: Heparin 5000 units/ml inj SUBQ SCH (08:25)
--- NOTE | 2018-10-26 08:27 | NUR ---
NURSE NOTES: After I prepared Heparin medication, patient refused to take it. I waste the heparin in med room.
[2018-10-26] MEDS ORDERED: BuPROPion XL 150mg tab ORAL SCH (09:00)
--- NOTE | 2018-10-26 09:56 | NUR ---
Social Service Note SOPHIE spoke with Eryn from [facility] [phone] (p). Eryn is requesting clinical information to be faxed to [phone] (f) for review. Anticipated plan for patient to transition to [facility]. Will follow up with Eryn.
[2018-10-26 12:00] VITALS: BP 124/83
[2018-10-26] MEDS ORDERED: D5 1/2NS 1000ml IV ONE (12:26)
--- NOTE | 2018-10-26 12:33 | NUR ---
NURSE NOTES: Patient discharged 1230, left the floor by him self. Patient's own medication and Vape given back to patient upon discharge. IV access and name tag removed. Patient and discharging nurse signed the belonging list. New prescription order given to patient copy on file; patient doesn't want to get the new prescription medication from here. Patient was stable upon discharge. Patient left by him self saying that gonna get Ubar. I asked him to give us address so that we can give him taxi voucher, however patient said, patient refused to provide. Patient was stable upon discharge.
--- NOTE | 2018-10-26 12:47 | Pulmonology Progress Note ---
Assessment/Plan Problems: (1) Suicidal ideation (2) Acute metabolic encephalopathy (3) Drug overdose (4) PTSD (post-traumatic stress disorder) (5) Bipolar disorder (6) Acute respiratory failure Assessment & Plan: resolved Assessment/Plan symptomatic treatment dc iv fluids prn haldol much better spirit today, wants to go back to [place] Subjective ROS Limited/Unobtainable: No Constitutional: Reports: no symptoms HEENT: Repors: no symptoms Respiratory: Reports: no symptoms Allergies: Coded Allergies: No Known Allergies (Unverified , 10/21/18) Objective Last 24 Hour Vital Signs Date Time Temp Pulse Resp B/P (MAP) Pulse Ox O2 Delivery O2 Flow Rate FiO2 10/26/18 12:00 98.4 98 18 124/83 (97) 100 10/26/18 09:00 Room Air Room Air 10/26/18 08:00 97.8 119 20 133/90 (104) 98 10/26/18 04:00 98.5 68 17 111/75 (87) 98 10/25/18 23:59 98.0 65 16 118/69 (85) 98 10/25/18 21:00 Room Air Room Air 10/25/18 20:00 98.3 97 17 119/78 (92) 99 10/25/18 16:38 98.8 79 22 130/88 (102) 99 Intake and Output 10/25/18 10/26/18 19:00 07:00 Intake Total 800 ml Balance 800 ml Intake Oral 800 ml # Voids 4 2 Objective General Appearance: WD/WN Lines, tubes and drains: peripheral HEENT: normocephalic, anicteric Neck: non-tender, normal alignment Respiratory/Chest: chest wall non-tender, lungs clear Breasts: no masses Cardiovascular/Chest: normal peripheral pulses Abdomen: normal bowel sounds Genitourinary/Rectal: normal genital Tuan Daniels MD Oct 26, 2018 12:47
--- NOTE | 2018-10-26 15:12 | NUR ---
*-* NO INSURANCE IN THE BAR TO SEND CLINICALS OR REVIEWS*-*
--- NOTE | 2018-10-26 21:26 | General Progress Note ---
Assessment/Plan Problem List: (1) Acute metabolic encephalopathy ICD Codes: G93.41 - Metabolic encephalopathy SNOMED: 53938848, 656809885 (2) Borderline personality disorder ICD Codes: F60.3 - Borderline personality disorder SNOMED: 69510975 (3) Alcohol abuse ICD Codes: F10.10 - Alcohol abuse, uncomplicated SNOMED: 41420191 (4) PTSD (post-traumatic stress disorder) ICD Codes: F43.10 - Post-traumatic stress disorder, unspecified SNOMED: 77520752 Status: stable Assessment/Plan zyprexa welbutrin cymbalta haldol bendryl prn avoid benzos the parents arranging placement. the pt is not at [facility]ent d[facility] Subjective Neurologic/Psychiatric: Reports: anxiety, depressed Allergies: Coded Allergies: No Known Allergies (Unverified , 10/21/18) Subjective the pt is doing better today spoke with father who would like to send him to rehab the pts father believes this is "addiction" the pt's father does not believe the pt has mental illness Objective Last 24 Hour Vital Signs Date Time Temp Pulse Resp B/P (MAP) Pulse Ox O2 Delivery O2 Flow Rate FiO2 10/26/18 12:00 98.4 98 18 124/83 (97) 100 10/26/18 09:00 Room Air Room Air 10/26/18 08:00 97.8 119 20 133/90 (104) 98 10/26/18 04:00 98.5 68 17 111/75 (87) 98 10/25/18 23:59 98.0 65 16 118/69 (85) 98 Intake and Output 10/25/18 10/26/18 18:59 06:59 Intake Total 800 ml Balance 800 ml Intake Oral 800 ml # Voids 4 2 Height (Feet): 5 Height (Inches): 10.00 Weight (Pounds): 150 General Appearance: WD/WN, no apparent distress, alert Neurologic: oriented x 3, responsive, depressed affect Elena Arellano MD Oct 26, 2018 21:26
--- NOTE | 2018-10-26 21:28 | Psych Consult Progress Note ---
Psych Consult Progress Note Consult 10/24/18 (1) Acute metabolic encephalopathy ICD Codes: G93.41 - Metabolic encephalopathy SNOMED: 45199200, 214400989 (2) Borderline personality disorder ICD Codes: F60.3 - Borderline personality disorder SNOMED: 59704900 (3) Alcohol abuse ICD Codes: F10.10 - Alcohol abuse, uncomplicated SNOMED: 42461049 (4) PTSD (post-traumatic stress disorder) ICD Codes: F43.10 - Post-traumatic stress disorder, unspecified SNOMED: 52814302 Status: stable Assessment/Plan zyprexa welbutrin cymbalta haldol bendryl prn avoid benzos Vital Signs Last 24 Hour Vital Signs Date Time Temp Pulse Resp B/P (MAP) Pulse Ox O2 Delivery O2 Flow Rate FiO2 10/26/18 12:00 98.4 98 18 124/83 (97) 100 10/26/18 09:00 Room Air Room Air 10/26/18 08:00 97.8 119 20 133/90 (104) 98 10/26/18 04:00 98.5 68 17 111/75 (87) 98 10/25/18 23:59 98.0 65 16 118/69 (85) 98 Problems: (1) Acute metabolic encephalopathy Status: Resolved (2) Borderline personality disorder Status: Chronic (3) Alcohol abuse Status: Chronic (4) PTSD (post-traumatic stress disorder) Status: Chronic Elena Arellano MD Oct 26, 2018 21:28
--- NOTE | 2018-10-28 11:47 | Discharge Summary ---
Discharge Summary Discharge Summary _ DATE OF ADMISSION: 10/21/2018 DATE OF DISCHARGE: 10/26/2018 DISCHARGED BY: Dr. Song REASON FOR ADMISSION: 18 years old male with past medical history significant for psychiatric disorder , presented to emergency department after he was taken multiply medications and overdose on them. Patient was found with empty bottles of propranolol, prazosin, olanzapine, and atomoxetine empty at the bedside. Patient voiced suicidal ideation to his girlfriend. Paramedics were called. Upon arrival patient was found to be in respiratory distress. Patient was altered , lethargic . Patient was given provided in ED. Laboratory workup revealed no leukocytosis , stable hemoglobin and hematocrit. Urine toxicology screen was positive for marijuana. Serum alcohol level was negative . Serum Tylenol and salicylate levels were negative. Potassium 3.4 , glucose 73 , albumin 3.3 Troponin was negative. Lactic acid 1.5. Calcium 7.3. CT of the head revealed no evidence of acute intracranial pathology. Chest x-ray post intubation revealed high position of endotracheal tube. Endotracheal tube was adjusted and subsequent x-ray revealed satisfactory position of endotracheal tube. Patient was admitted to ICU for further management. CONSULTANTS: pulmonary Dr. Daniels psychiatrist [facility] COURSE: Patient admitted to ICU. Ventilator support and pulmonary toilet provided. [employer] closely followed. Patient was followed up with [facility]. Patient was able to be extubated the next day. Supplemental oxygen provided as needed to keep pulse oximetry above 92%. Pulmonary toilet was on standby. Altered mental status improved. IV fluids discontinued . Psychiatrist followed and diagnosed patient with acute metabolic encephalopathy , borderline personality disorder , posttraumatic stress disorder and alcohol abuse. Psychiatric medication regimen was optimized. Psychiatrist recommended to avoid benzodiazepine. Patient was counseled on abstinence from alcohol and illicit street drugs. Supportive care provided. Renal parameters and electrolytes were closely monitored, electrolytes corrected as needed, and nephrotoxins were avoided. All electrolytes stable prior to discharge. Patient had a transient leukocytosis on 10/22, likely reactive, which resolved. No fevers. No evidence of infection. Supportive care provided. DVT prophylaxis provided. Patient clinically stabilized and was ready for discharge home . Recommended outpatient follow-up with a psychiatrist. FINAL DIAGNOSES: Suicidal attempt by beta-kathie overdose Drug overdose Acute metabolic encephalopathy Acute respiratory failure Borderline personality disorder PTSD Alcohol abuse DISCHARGE MEDICATIONS: See Medication Reconciliation list. DISCHARGE INSTRUCTIONS: Patient was discharged home . Follow up with primary care provider in one week. I have been assigned to dictate discharge summary for this account. I was not involved in the patient's management. Tyra Camarillo NP Oct 28, 2018 11:47
== END 2018-10-26 12:27 | disposition home or self-care (01) | DRG 917 ==
LOC: EDBD 19:11 → EMR 19:53 → ICU 20:08 → EDBEDREQ 20:50 → 4E 10-22 11:30
DX: T44.7X2A Poisoning by beta-adrenoreceptor antagonists, intentional self-harm, initial encounter (principal); J96.00 Acute respiratory failure, unspecified whether with hypoxia or hypercapnia; G93.41 Metabolic encephalopathy; T50.992A Poisoning by other drugs, medicaments and biological substances, intentional self-harm, initial encounter; Y92.009 Unspecified place in unspecified non-institutional (private) residence as the place of occurrence of the external cause; F60.3 Borderline personality disorder; F43.10 Post-traumatic stress disorder, unspecified; F10.10 Alcohol abuse, uncomplicated
CPT/HCPCS: 31500; 36415; 36600; 70450; 71045; 80053; 80076; 80307; 80329; 81003; 82550; 82803; 82962; 83605; 83615; 83735; 84100; 84484; 85025; 85610; 85730; 87081; 93005; 94002; 94003; 94664; 96365; 96366; 96375; 99291